=== PATIENT | female | born 1960 | race Caucasian/White ===

== ENCOUNTER → 2016-10-20 | Outpatient (CLI) | payer BC, OTHER ==
[~2016-10-20] MED LIST: BLACK COHOSH PO; DTRSR4 PO; HYDR-713 PO; MULT-506 PO; OMEP20TA14 PO; SULF800T23 PO; [UNRECOGNIZED DRUG - OTHER] PO
== END | disposition home or self-care (01) ==
LOC: C.LAB 13:11
PROVIDERS: ATTEND Nurse Practitioner Family
DX: E87.6 Hypokalemia (principal)

== ENCOUNTER → 2016-11-15 | Outpatient (CLI) | payer BC, OTHER ==
--- NOTE | 2016-11-15 16:47 | DIAGNOSTIC IMAGING REPORT ---
RIGHT FOOT 3 VIEWS HISTORY: ACUTE PAIN OF RIGHT FOOT Right COMPARISON: Right foot 02/06/2016. FINDINGS: There is no fracture or dislocation. Soft tissues are unremarkable. No radiopaque foreign bodies. Small plantar heel spur. Mild osteoarthritis at the first MTP joint demonstrated by mild cartilage space narrowing and subchondral cystic change. Small bony bunion. IMPRESSION: No fractures. Mild osteoarthritis at the first MTP joint. Electronically signed by: Jeffrey Scruggs M.D. 11/15/2016 4:46 PM Dictated Date/Time: 11/15/2016 4:43 PM
== END | disposition home or self-care (01) ==
LOC: C.RAD1850 16:15
PROVIDERS: ATTEND Nurse Practitioner Family
DX: M79.671 Pain in right foot (principal)

== ENCOUNTER → 2016-12-05 | Outpatient (CLI) | payer BC, OTHER ==
--- NOTE | 2016-12-05 09:08 | DIAGNOSTIC IMAGING REPORT ---
RIGHT KNEE 4 OR MORE CLINICAL HISTORY: RIGHT KNEE PAIN Right pain COMPARISON: None. DISCUSSION: Generalized degenerative change of the medial and to lesser extent lateral joint compartments. Minimal chondrocalcinosis. Mild peripheral osteophytic reaction. Degenerative change patellofemoral joint. There is no evidence for soft tissue swelling. IMPRESSION: Generalized degenerative change all major joint compartments. Minimal Chondrocalcinosis. Electronically signed by: Uday Pace M.D. 12/05/2016 9:06 AM Dictated Date/Time: 12/05/2016 9:05 AM
== END | disposition home or self-care (01) ==
LOC: C.RDSM 14:44
PROVIDERS: ATTEND Physician Assistant
DX: M25.561 Pain in right knee (principal)

== ENCOUNTER → 2018-01-29 | Outpatient (CLI) | payer BC, OTHER | END | disposition home or self-care (01) | LOC: C.RDSM 11:30 | PROVIDERS: ATTEND Orthopaedic Surgery Sports Medicine | DX: M17.2 Bilateral post-traumatic osteoarthritis of knee (principal) ==

== ENCOUNTER 2021-05-29 23:20 | Inpatient (IN) ==
[2021-05-30 00:26] LABS: Eosinophils # (auto) 0.03 K/uL (0-0.5); Eosinophils % (auto) 0.7 %; Immature Granulocytes # (auto) 0.02 K/uL (0.00-0.02); Immature Granulocytes % (auto) 0.5 %; Lymphocytes # (auto) 0.59 K/uL (1.2-3.4); Lymphocytes % (auto) 14.5 %; Mean Corpuscular Hemoglobin 27.9 pg (25-34); Mean Corpuscular Hgb Conc 34.1 g/dL (32-36); Mean Corpuscular Volume 81.8 fL (80-100); Mean Platelet Volume 10.3 fL (7.4-10.4); Monocytes # (auto) 0.26 K/uL (0.11-0.59); Monocytes % (auto) 6.4 %; Neutrophils # (auto) 3.17 K/uL (1.4-6.5); Neutrophils % (auto) 77.9 %; Platelet Count 189 K/uL (130-400); RDW Coefficient of Variation 14.1 % (11.5-14.5); RDW Standard Deviation 42.3 fL (36.4-46.3); Red Blood Count 5.01 M/uL (4.2-5.4); White Blood Count 4.07 K/uL (4.8-10.8)
--- NOTE | 2021-05-30 00:29 | Emergency Department Note ---
Impression & Plan Acute hyponatremia, Altered mental status, Sinusitis Admit to the [facility] ED Provider Note NAME: CARL ALCANTAR AGE: 61 SEX: F ARRIVES VIA: Walk-In INFORMANT: Patient ED PROVIDER(S): Breanna Gonzalez DO CHIEF COMPLAINT: Confusion PLAN: Disposition: Admit to the [facility] Condition: Stable MEDICAL DECISION MAKING: This is a 61-year-old female patient who presents to the emergency department with altered mental status. The patient was diagnosed with COVID-19 last week. Since that time she has had worsening confusion, diarrhea, body aches and headache. Upon presentation to the emergency department, the patient had borderline hypoxia. Laboratory studies revealed significant hyponatremia. She began to receive IV normal saline solution. CT scan of the brain was normal. [facility] for [facility] management. Triage Nursing notes reviewed and agree with them. Additional history obtained from the patient's daughter who accompanied her to triage Prior medical records reviewed Vital Signs: reviewed and remarkable for an O2 saturation of 90% on room air. Differential diagnosis: Hypoxia, dehydration, hyperglycemia, hypoglycemia ER treatment provided: IV normal saline bolus Diagnostics interpreted by me: ECG: Normal sinus rhythm at a rate of [address] segment elevation or signs of ischemia. There is no ectopy. 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 No ICH, mass-effect or edema. No evidence of acute cortical stroke. Visualized sinuses reveal mucosal thickening involving the bilateral maxillary, ethmoids, sphenoid and frontal sinuses consistent with sinusitis the mastoid air cells are clear. HPI: 61/F arrives for evaluation of confusion. The patient was diagnosed with COVID-19 last week. Since that time she had increasing confusion. She complains of weakness, intermittent episodes of diarrhea, body aches and a headache. The patient does live alone. She describes feeling thirsty. She is vaccinated. ROS: See above HPI for pertinent positives & negatives. A total of 10 systems reviewed and were otherwise negative. PAST MEDICAL HISTORY:See Below PAST SURGICAL HISTORY:See Below FAMILY HISTORY:See Below SOCIAL HISTORY:See Below HOME MEDICATIONS:See list ALLERGIES:See list VITALS:See Below PHYSICAL EXAMINATION: HEENT: Head - normocephalic and atraumatic. Pupils are equal, round, and reactive to light. Extraocular eye muscles are intact and sclera are anicteric. Nose - moist nasal mucosa without discharge. Mouth - moist buccal mucosa. Oropharynx is nonerythematous and there is no tonsillar exudate or edema noted. Neck: Supple; no JVD, nuchal rigidity, cervical lymphadenopathy, or auscultated bruits. Heart: Regular rate and rhythm. There is a normal S1 and S2 with no murmurs, clicks, or gallops appreciated. Lungs: Clear to auscultation bilaterally with no wheezes, rales, or rhonchi. Abdomen: Soft, completely nontender, nondistended, with good bowel sounds. There are no palpable pulsatile masses or hepatosplenomegaly. There is no guarding, rigidity, or rebound noted. Extremities: No evidence of cyanosis, clubbing, or edema. There are easily palpable peripheral pulses. Neuro:The patient is awake and alert, oriented to day, time, and place. Muscle strength is 5/5 in all 4 extremities. 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 There are no cerebellar signs. ED COURSE: Times/Reassessments: 2350: The patient was evaluated in the a subweight. Her O2 saturation was borderline and she was placed on supplemental oxygen. She was then moved to room A2. BSG was obtained and was greater than 100. An order was placed for continuous cardiac monitoring. The patient was in a normal sinus rhythm at a rate of 88. A twelve-lead EKG was obtained. An IV lock was initiated and labs were drawn as above. The patient had a portable chest x-ray performed. She will go for CT scan of the brain. Patient was bolused with 500 cc of normal saline and started on a normal saline drip. Breanna Gonzalez DO Past Med/Surg History Medical History (Updated 05/30/21 @ 04:04 by Kusum Martino DO) Arthritis of knee GERD (gastroesophageal reflux disease) Hypertension Pigmented villonodular synovitis of right knee Surgical History (Updated 05/20/20 @ 00:02 by Jose Juan Jordan) History of arthroscopic knee surgery Family History Other Family history non-contributory Social History Smoking Status: Never smoker Preferred Language: Kazakh marital status: Single current occupational status: retired Feels Safe at Home: Yes Allergies Allergies Allergy/AdvReac Type Severity Reaction Status Date / Time adhesive Allergy Unknown Unknown Verified 05/30/21 00:16 Home Meds Home Medications Medication Instructions Recorded Confirmed losartan 25 mg tablet 25 mg PO DAILY 12/20/18 05/30/21 omeprazole magnesium 20 mg 20 mg PO DAILY 12/20/18 05/30/21 tablet,delayed release (Prilosec OTC) aspirin 81 mg chewable tablet 81 mg PO DAILY 05/05/20 05/30/21 solifenacin 5 mg tablet 5 mg PO DAILY 05/05/20 05/30/21 Results & Data (ED) Vital Signs Vital Signs - 24 hr 05/29/21 23:24 05/30/21 00:12 05/30/21 00:20 Temperature 36.6 C Temperature Source Temporal Artery Scan Pulse Rate 100 H 90 Pulse Rate [Finger] Respiratory Rate 20 20 Respiratory Effort / Characteristics Non-Labored Spontaneous Respiratory Depth Normal Respiratory Pattern Regular Blood Pressure 121/91 Blood Pressure [Left Arm] Blood Pressure Mean 101 Blood Pressure Mean [Left Arm] Blood Pressure Position Sitting Pulse Oximetry 90 99 96 Oxygen Delivery Method Room Air Nasal Cannula Nasal Cannula Oxygen Flow Rate 2 2 Sepsis Recent Fever Within 48 Hours No Sepsis New/Unexplained Change in Mental Status No Sepsis Action Taken by Nursing No Action Required 05/30/21 00:22 05/30/21 02:07 Temperature Temperature Source Pulse Rate Pulse Rate [Finger] 88 77 Respiratory Rate 18 18 Respiratory Effort / Characteristics Non-Labored Spontaneous Non-Labored Spontaneous Respiratory Depth Normal Normal Respiratory Pattern Blood Pressure Blood Pressure [Left Arm] 119/94 133/84 Blood Pressure Mean Blood Pressure Mean [Left Arm] 102 100 Blood Pressure Position Pulse Oximetry 96 97 Oxygen Delivery Method Nasal Cannula Nasal Cannula Oxygen Flow Rate 2 2 Sepsis Recent Fever Within 48 Hours Sepsis New/Unexplained Change in Mental Status Sepsis Action Taken by Nursing Laboratory Data Result diagrams: 05/30/21 00:09 05/30/21 00:09 Lab Results 05/30/21 05/30/21 05/30/21 Range/Units 00:09 00:09 00:10 WBC 4.07 L (4.8-10.8) K/uL RBC 5.01 (4.2-5.4) M/uL Hgb 14.0 (12.0-16.0) g/dL Hct 41.0 (37-47) % MCV 81.8 (80-100) fL MCH 27.9 (25-34) pg MCHC 34.1 (32-36) g/dL RDW Std Deviation 42.3 (36.4-46.3) fL RDW Coeff of Dorothy 14.1 (11.5-14.5) % Plt Count 189 (130-400) K/uL MPV 10.3 (7.4-10.4) fL Immature Gran % (Auto) 0.5 % Neut % (Auto) 77.9 % Lymph % (Auto) 14.5 % [place] % (Auto) 6.4 % Eos % (Auto) 0.7 % Baso % (Auto) 0.0 % Neut # (Auto) 3.17 (1.4-6.5) K/uL Lymph # (Auto) 0.59 L (1.2-3.4) K/uL [place] # (Auto) 0.26 (0.11-0.59) K/uL Eos # (Auto) 0.03 (0-0.5) K/uL Baso # (Auto) 0.00 (0-0.2) K/uL Immature Gran # (Auto) 0.02 (0.00-0.02) K/uL Sodium 128 L (136-145) mmol/L Potassium 3.5 (3.5-5.1) mmol/L Chloride 94 L (98-107) mmol/L Carbon Dioxide 24 (21-32) mmol/L Anion Gap 10.0 (3-11) BUN 22 H (7-18) mg/dl Creatinine 1.19 (0.6-1.2) mg/dl Est Cr Clr Drug Dosing Not Reportable Est GFR ( Amer) 57.5 ml/min Est GFR (Non-Af Amer) 49.6 ml/min BUN/Creatinine Ratio 18.2 (10-20) Glucose 101 H (70-99) mg/dl POC Glucose 98 (70-99) mg/dl Calcium 9.8 (8.5-10.1) mg/dl Total Bilirubin 0.5 (0.2-1) mg/dl AST 98 H (15-37) U/L ALT 60 (12-78) Alkaline Phosphatase 106 (45-117) U/L Troponin I < 0.015 (0-0.045) ng/ml Total Protein 7.6 (6.4-8.2) gm/dl Albumin 3.2 L (3.4-5.0) gm/dl Globulin 4.4 H (2.5-4.0) gm/dl Albumin/Globulin Ratio 0.7 L (0.9-2) TSH 0.510 (0.300-4.500) uIu/ml Urine Color Urine Appearance (Clear) Urine pH (4.5-7.5) Ur Specific [place] (1.000-1.030) Urine Protein (Negative) Urine Glucose (UA) (Negative) Urine Ketones (Negative) Urine Blood (Negative) Urine Nitrite (Negative) Urine Bilirubin (Negative) Urine Urobilinogen (Negative) Ur Leukocyte Esterase (Negative) Urine WBC (Auto) (0-5) /hpf Urine RBC (Auto) (0-4) /hpf U Hyaline Cast (Auto) (0-5) /lpf U Epithel Cells (Auto) (0-5) /lpf Urine Bacteria (Auto) (Negative) Granular Casts (0) /lpf Urine Yeast 05/30/21 Range/Units 01:49 WBC (4.8-10.8) K/uL RBC (4.2-5.4) M/uL Hgb (12.0-16.0) g/dL Hct (37-47) % MCV (80-100) fL MCH (25-34) pg MCHC (32-36) g/dL RDW Std Deviation (36.4-46.3) fL RDW Coeff of Dorothy (11.5-14.5) % Plt Count (130-400) K/uL MPV (7.4-10.4) fL Immature Gran % (Auto) % Neut % (Auto) % Lymph % (Auto) % [place] % (Auto) % Eos % (Auto) % Baso % (Auto) % Neut # (Auto) (1.4-6.5) K/uL Lymph # (Auto) (1.2-3.4) K/uL [place] # (Auto) (0.11-0.59) K/uL Eos # (Auto) (0-0.5) K/uL Baso # (Auto) (0-0.2) K/uL Immature Gran # (Auto) (0.00-0.02) K/uL Sodium (136-145) mmol/L Potassium (3.5-5.1) mmol/L Chloride (98-107) mmol/L Carbon Dioxide (21-32) mmol/L Anion Gap (3-11) BUN (7-18) mg/dl Creatinine (0.6-1.2) mg/dl Est Cr Clr Drug Dosing Est GFR ( Amer) ml/min Est GFR (Non-Af Amer) ml/min BUN/Creatinine Ratio (10-20) Glucose (70-99) mg/dl POC Glucose (70-99) mg/dl Calcium (8.5-10.1) mg/dl Total Bilirubin (0.2-1) mg/dl AST (15-37) U/L ALT (12-78) Alkaline Phosphatase (45-117) U/L Troponin I (0-0.045) ng/ml Total Protein (6.4-8.2) gm/dl Albumin (3.4-5.0) gm/dl Globulin (2.5-4.0) gm/dl Albumin/Globulin Ratio (0.9-2) TSH (0.300-4.500) uIu/ml Urine Color Dark Yellow Urine Appearance Cloudy A (Clear) Urine pH 6.0 (4.5-7.5) Ur Specific [place] 1.022 (1.000-1.030) Urine Protein 1+ H (Negative) Urine Glucose (UA) Negative (Negative) Urine Ketones 2+ H (Negative) Urine Blood Negative (Negative) Urine Nitrite Negative (Negative) Urine Bilirubin 1+ H (Negative) Urine Urobilinogen Negative (Negative) Ur Leukocyte Esterase Trace H (Negative) Urine WBC (Auto) 5-10 H (0-5) /hpf Urine RBC (Auto) 0-4 (0-4) /hpf U Hyaline Cast (Auto) 1-5 (0-5) /lpf U Epithel Cells (Auto) >30 H (0-5) /lpf Urine Bacteria (Auto) Negative (Negative) Granular Casts 1-5 H (0) /lpf Urine Yeast Not Reportable Administered Medications Sodium Chloride (Nss) 500 mls @ 125 mls/hr IV .Q4H ROGELIO Stop: 06/29/21 01:14 Last Admin: 05/30/21 02:13 Dose: 125 mls/hr Documented by: [id number] Discontinued Medications Sodium Chloride (Nss) 500 mls @ 999 mls/hr IV .Q31M ONE Stop: 05/30/21 01:34 Last Infusion: 05/30/21 02:13 Dose: 0 mls/hr Documented by: [id number] Admin: 05/30/21 01:14 Dose: 999 mls/hr Documented by: [id number] Discharge Plan Visit Data Chief Complaint: Confusion Stated Complaint: COVID+, WEAK, CONFUSION, DIARRHEA ED Provider: Breanna Gonzalez Discharge Problem: Acute hyponatremia, Altered mental status, Sinusitis Forms Stand Alone Forms: [facility] [employer] Prescriptions Prescriptions: No Action aspirin 81 mg tablet,chewable 81 mg PO DAILY RF: 0 solifenacin 5 mg tablet 5 mg PO DAILY RF: 0 losartan 25 mg Tablet 25 mg PO DAILY RF: 0 omeprazole magnesium [Prilosec OTC] 20 mg Tablet,Delayed Release (Dr/Ec) 20 mg PO DAILY RF: 0 Referrals Referrals: Rose White CRNP [Primary Care Provider] - Discharge Problem: Altered mental status Qualifiers: Altered mental status type: unspecified Qualified Code(s): R41.82 - Altered mental status, unspecified Sinusitis Qualifiers: Sinusitis location: pansinusitis Chronicity: acute Recurrence: non-recurrent Qualified Code(s): J01.40 - Acute pansinusitis, unspecified
[2021-05-30 00:44] LABS: Alanine Aminotransferase 60 (12-78); Albumin Level 3.2 gm/dl (3.4-5.0); Aspartate Aminotransferase 98 U/L (15-37); BUN Creatinine Ratio 18.2 (10-20); Blood Urea Nitrogen 22 mg/dl (7-18); Calcium 9.8 mg/dl (8.5-10.1); Carbon Dioxide 24 mmol/L (21-32); Chloride 94 mmol/L (98-107); Est GFR (African American) 57.5 ml/min; Est GFR (Non-African American) 49.6 ml/min; Glucose 101 mg/dl (70-99); Potassium 3.5 mmol/L (3.5-5.1); Sodium 128 mmol/L (136-145)
[2021-05-30 00:54] LABS: Albumin Globulin Ratio 0.7 (0.9-2); Alkaline Phosphatase 106 U/L (45-117); Bilirubin,Total 0.5 mg/dl (0.2-1); Globulin 4.4 gm/dl (2.5-4.0); Total Protein 7.6 gm/dl (6.4-8.2); Troponin I < 0.015 ng/ml (0-0.045)
[2021-05-30] MEDS ORDERED: SODIUM CHLORIDE 0.9% 500 ML IV ONE (01:04)
[2021-05-30 02:01] LABS: Appearance Urine Cloudy (Clear); Bacteria Urine Automated Negative (Negative); Blood Urine Negative (Negative); Color Urine Dark Yellow; Epithelial Cell Urine Auto >30 /lpf (0-5); Glucose Urine UA Negative (Negative); Ketones Urine 2+ (Negative); Leukocyte Esterase Urine Trace (Negative); Nitrite Urine Negative (Negative); Protein Urine 1+ (Negative); Specific Gravity Urine 1.022 (1.000-1.030); Urobilinogen Urine Negative (Negative)
[2021-05-30] MEDS: SODIUM CHLORIDE 0.9% 500 ML IV SCH ×3 (02:13→08:36)
[2021-05-30 02:16] LABS: Bilirubin Urine 1+ (Negative)
[2021-05-30 02:26] LABS: RBC Urine Automated 0-4 /hpf (0-4)
--- NOTE | 2021-05-30 03:01 | History & Physical Report ---
Date of Service May 30, 2021 Assessment & Plan (1) Acute hyponatremia: Plan: [id number]=[id number]. Most likely contributing to patient's worsening confusion. Suspect multifactorial - poor oral intake + diarrhea and vomiting losses. Hyponatremia also common in Covid-19 patient's secondary to SIADH mechanism. No seizure. Patient is responding to questions appropriately, albeit slowly. Patient has received appx 2L NSS fluids at this time. -Check urine and serum osm -Check urine sodium -Check BMP q 8 hours -Slow correction of hyponatremia - goal rate of <10 meq/24hrs to avoid ODS (2) Hypertension: Plan: Chronic. Stable. BP presently 133/84 -Continue Losartan 25mg po daily -Monitor (3) GERD (gastroesophageal reflux disease): Plan: Chronic. Stable -Pepcid daily (4) COVID-19: Plan: Adequate oxygenation on 2L NC -Goal saturation >92. Monitor -No need for steroids at this time -Monitor History of Present Illness Chief Complaint: weakness Primary Care Provider: SAVANNA Baez Ashlimelo Galeas is a 61yo C female with history of HTN, GERD presenting with progressive confusion over the last week. Patient was diagnosed with Covid-19 1 week ago. She reports feeling more confused over the last several days. She has been having some vomiting and diarrhea as well as poor oral intake. She has a dull headache. Denies loss of consciousness, dizziness, falls or seizure. Denies chest pain, SOB. Saturations acceptable in the ER. Patient presently on 2L NC. She is vaccinated. Labs reveal Na of 128 ER Course: NSS x 1L followed by 125mL/hr Allergies Allergy/AdvReac Type Severity Reaction Status Date / Time adhesive Allergy Unknown Unknown Verified 05/30/21 00:16 Home Medications Medication Instructions Recorded Confirmed Type losartan 25 mg tablet 25 mg PO DAILY 12/20/18 05/30/21 History omeprazole magnesium 20 mg 20 mg PO DAILY 12/20/18 05/30/21 History tablet,delayed release (Prilosec OTC) aspirin 81 mg chewable tablet 81 mg PO DAILY 05/05/20 05/30/21 History solifenacin 5 mg tablet 5 mg PO DAILY 05/05/20 05/30/21 History Past Med/Surg History Medical History (Updated 05/30/21 @ 04:04 by Kusum M Gunner, DO) Arthritis of knee GERD (gastroesophageal reflux disease) Hypertension Pigmented villonodular synovitis of right knee Surgical History (Updated 05/20/20 @ 00:02 by Jose Juan Jordan) History of arthroscopic knee surgery Family History Other Family history non-contributory Social History Smoking Status: Never smoker Preferred Language: Kyrgyz marital status: Single current occupational status: retired Feels Safe at Home: Yes Review of Systems Review of Systems: All systems reviewed & are unremarkable except as noted in HPI & below Physical Exam Physical Exam: General: patient resting comfortably, NAD, non-toxic in appearance, AA&O x 3, slow to respond to questioning Skin: warm, dry, intact, no rashes or lesions HEENT: NC/AT, PERRL, EOMI, anicteric sclera, conjunctiva without injection, external ear normal to inspection and nontender, nares patent, moist mucus membranes, dentition intact, no oropharyngeal lesions, neck supple, trachea midline, no LAD, no thyromegaly, no JVD Heart: +S1/S2, regular, no m/r/g Lungs: equal air entry bilaterally, no rales/rhonchi/wheezes Abd: +BS, soft, NT/ND, no masses/organomegaly/ascites Ext: warm, 2+ pulses in UE/LE bilaterally, no clubbing/cyanosis or edema Neuro: nonfocal, patient AA&O x 3, speech intact, no facial droop, moving all extremities on command with equal strength 5/5 Results & Data Results & Data ([facility]) Vital Signs (Past 12 Hours) Vital Signs Temp Pulse Pulse Resp BP BP Pulse Ox 05/30/21 02:07 77 18 133/84 97 05/30/21 00:22 88 18 119/94 96 05/30/21 00:20 90 20 96 05/30/21 00:12 99 05/29/21 23:24 36.6 C 100 H 20 121/91 90 Laboratory Results Laboratory Results WBC 4.07 K/uL (4.8-10.8) L 05/30/21 00:09 RBC 5.01 M/uL (4.2-5.4) 05/30/21 00:09 Hgb 14.0 g/dL (12.0-16.0) 05/30/21 00:09 Hct 41.0 % (37-47) 05/30/21 00:09 MCV 81.8 fL (80-100) 05/30/21 00:09 MCH 27.9 pg (25-34) 05/30/21 00:09 MCHC 34.1 g/dL (32-36) 05/30/21 00:09 RDW Std Deviation 42.3 fL (36.4-46.3) 05/30/21 00:09 RDW Coeff of Dorothy 14.1 % (11.5-14.5) 05/30/21 00:09 Plt Count 189 K/uL (130-400) 05/30/21 00:09 MPV 10.3 fL (7.4-10.4) 05/30/21 00:09 Immature Gran % (Auto) 0.5 % 05/30/21 00:09 Neut % (Auto) 77.9 % 05/30/21 00:09 Lymph % (Auto) 14.5 % 05/30/21 00:09 [place] % (Auto) 6.4 % 05/30/21 00:09 Eos % (Auto) 0.7 % 05/30/21 00:09 Baso % (Auto) 0.0 % 05/30/21 00:09 Neut # (Auto) 3.17 K/uL (1.4-6.5) 05/30/21 00:09 Lymph # (Auto) 0.59 K/uL (1.2-3.4) L 05/30/21 00:09 [place] # (Auto) 0.26 K/uL (0.11-0.59) 05/30/21 00:09 Eos # (Auto) 0.03 K/uL (0-0.5) 05/30/21 00:09 Baso # (Auto) 0.00 K/uL (0-0.2) 05/30/21 00:09 Immature Gran # (Auto) 0.02 K/uL (0.00-0.02) 05/30/21 00:09 Sodium 128 mmol/L (136-145) L 05/30/21 00:09 Potassium 3.5 mmol/L (3.5-5.1) 05/30/21 00:09 Chloride 94 mmol/L (98-107) L 05/30/21 00:09 Carbon Dioxide 24 mmol/L (21-32) 05/30/21 00:09 Anion Gap 10.0 (3-11) 05/30/21 00:09 BUN 22 mg/dl (7-18) H 05/30/21 00:09 Creatinine 1.19 mg/dl (0.6-1.2) 05/30/21 00:09 Est Cr Clr Drug Dosing Not Reportable 05/30/21 00:09 Est GFR ( Amer) 57.5 ml/min 05/30/21 00:09 Est GFR (Non-Af Amer) 49.6 ml/min 05/30/21 00:09 BUN/Creatinine Ratio 18.2 (10-20) 05/30/21 00:09 Glucose 101 mg/dl (70-99) H 05/30/21 00:09 POC Glucose 98 mg/dl (70-99) 05/30/21 00:10 Calcium 9.8 mg/dl (8.5-10.1) 05/30/21 00:09 Total Bilirubin 0.5 mg/dl (0.2-1) 05/30/21 00:09 AST 98 U/L (15-37) H 05/30/21 00:09 ALT 60 (12-78) 05/30/21 00:09 Alkaline Phosphatase 106 U/L (45-117) 05/30/21 00:09 Troponin I < 0.015 ng/ml (0-0.045) 05/30/21 00:09 Total Protein 7.6 gm/dl (6.4-8.2) 05/30/21 00:09 Albumin 3.2 gm/dl (3.4-5.0) L 05/30/21 00:09 Globulin 4.4 gm/dl (2.5-4.0) H 05/30/21 00:09 Albumin/Globulin Ratio 0.7 (0.9-2) L 05/30/21 00:09 TSH 0.510 uIu/ml (0.300-4.500) 05/30/21 00:09 Urine Color Dark Yellow 05/30/21 01:49 Urine Appearance Cloudy (Clear) A 05/30/21 01:49 Urine pH 6.0 (4.5-7.5) 05/30/21 01:49 Ur Specific [place] 1.022 (1.000-1.030) 05/30/21 01:49 Urine Protein 1+ (Negative) H 05/30/21 01:49 Urine Glucose (UA) Negative (Negative) 05/30/21 01:49 Urine Ketones 2+ (Negative) H 05/30/21 01:49 Urine Blood Negative (Negative) 05/30/21 01:49 Urine Nitrite Negative (Negative) 05/30/21 01:49 Urine Bilirubin 1+ (Negative) H 05/30/21 01:49 Urine Urobilinogen Negative (Negative) 05/30/21 01:49 Ur Leukocyte Esterase Trace (Negative) H 05/30/21 01:49 Urine WBC (Auto) 5-10 /hpf (0-5) H 05/30/21 01:49 Urine RBC (Auto) 0-4 /hpf (0-4) 05/30/21 01:49 U Hyaline Cast (Auto) 1-5 /lpf (0-5) 05/30/21 01:49 U Epithel Cells (Auto) >30 /lpf (0-5) H 05/30/21 01:49 Urine Bacteria (Auto) Negative (Negative) 05/30/21 01:49 Granular Casts 1-5 /lpf (0) H 05/30/21 01:49 Urine Yeast Not Reportable 05/30/21 01:49 Code Status & VTE Plan VTE Prophylaxis Plan VTE Prophylaxis will be ordered: Yes PG Care Time/CCT Total # of Minutes Spent Total Time Spent with Patient: Total time spent is greater than 50% in coordination of care (as documented) at patient's floor/unit and/or counseling patient: Coding Level of Care Code 00538 Initial Inpt Care Lvl 2 Diagnoses Acute hyponatremia E87.1 Hypertension I10 GERD (gastroesophageal reflux disease) K21.9 COVID-19 U07.1
[2021-05-30 07:21] LABS: BUN Creatinine Ratio 20.8 (10-20); Blood Urea Nitrogen 20 mg/dl (7-18); Carbon Dioxide 23 mmol/L (21-32); Est GFR (African American) 73.6 ml/min; Est GFR (Non-African American) 63.5 ml/min; Glucose 100 mg/dl (70-99)
[2021-05-30 08:09] LABS: Chloride 98 mmol/L (98-107); Potassium 3.3 mmol/L (3.5-5.1); Sodium 131 mmol/L (136-145)
--- NOTE | 2021-05-30 08:12 | XRay Report ---
XR chest 1V portable CLINICAL HISTORY: weakness TECHNIQUE: Single frontal radiograph of the chest was obtained. Comparison: None available at the time of this dictation. FINDINGS: No lines and tubes are seen. The cardiomediastinal silhouette is normal. Bilateral lower lung predomi nant airspace opacities are seen. No evidence of pleural effusion or pneumothorax. IMPRESSION: Bilateral lower lung predominant airspace opacities which may represent atelectasis, pneumonia, and/o r aspiration. ACT 112: Negative or not required by law. Electronically signed by: Jesus Kenyon M.D. 05/30/2021 8:10 AM
--- NOTE | 2021-05-30 08:17 | CT Scan Report ---
CT head/brain wo con CLINICAL HISTORY: altered ms Technique: Contiguous axial CT images of the head were acquired from the base of the skull to the chris leonard without intravenous contrast administration. Images were viewed in brain, subdural and [facility]. Automated dose lowering techniques and/or adjustment according to patient size were utilized for this exam. Comparison: None available at the time of this dictation. Findings: The ventricles, basal cisterns, and cerebral sulci are normal. There is no acute intracranial hemorrh age or evidence of acute territorial infarction. Neither mass effect, shift of the midline structures , nor abnormal extra-axial fluid collections are shown. 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 Diffuse soft tissue thickening seen in the maxillary, ethmoid, and sphenoid sinuses. The orbits appea r normal. There are no acute fractures of the calvaria or scalp swelling. Impression: No acute intracranial hemorrhage, no evidence of acute territorial infarction or other acute intracra nial disease process. ACT 112: Negative or not required by law. Electronically signed by: Jesus Kenyon M.D. 05/30/2021 8:15 AM
[2021-05-30] MEDS ORDERED: ONDANSETRON INJ 2 MG/ML 2 ML VIAL IV PRN (09:26)
[2021-05-30 10:19] LABS: BUN Creatinine Ratio 20.4 (10-20); Calcium 9.4 mg/dl (8.5-10.1); Creatinine Clr Calc Pharmacy 74.2 ml/min; Est GFR (African American) 73.6 ml/min; Est GFR (Non-African American) 63.5 ml/min; Potassium 3.4 mmol/L (3.5-5.1)
[2021-05-30] MEDS: ASPIRIN 81 MG CHEW PO SCH (14:53)
[2021-05-30] MEDS: ENOXAPARIN INJ 40 MG/0.4 ML SYR SQ SCH ×2 (14:53→21:33)
[2021-05-30] MEDS: FAMOTIDINE 40 MG TABLET PO SCH (17:50)
[2021-05-30] MEDS: LOSARTAN POTASSIUM 25 MG TAB PO SCH (17:50)
[2021-05-30 18:24] LABS: BUN Creatinine Ratio 15.1 (10-20); Calcium 9.6 mg/dl (8.5-10.1); Creatinine Clr Calc Pharmacy 64.3 ml/min; Est GFR (African American) 61.8 ml/min; Est GFR (Non-African American) 53.4 ml/min; Potassium 3.5 mmol/L (3.5-5.1)
[2021-05-30] MEDS ORDERED: METOPROLOL TARTRATE 1 MG/ML VIAL IV PRN (19:34)
[2021-05-30] MEDS: SODIUM CHLORIDE 0.9% 1000ML 1,000 ML IV SCH (19:49)
[2021-05-31 02:21] LABS: BUN Creatinine Ratio 16.7 (10-20); Calcium 9.6 mg/dl (8.5-10.1); Creatinine Clr Calc Pharmacy 68.6 ml/min; Est GFR (African American) 66.9 ml/min; Est GFR (Non-African American) 57.7 ml/min; Potassium 3.6 mmol/L (3.5-5.1)
[2021-05-31] MEDS: SODIUM CHLORIDE 0.9% 1000ML 1,000 ML IV SCH (04:57)
[2021-05-31] MEDS: ACETAMINOPHEN 325 MG TAB PO PRN (08:34)
[2021-05-31] MEDS: FAMOTIDINE 40 MG TABLET PO SCH (08:34)
[2021-05-31] MEDS: LOSARTAN POTASSIUM 25 MG TAB PO SCH (08:34)
[2021-05-31] MEDS: ASPIRIN 81 MG CHEW PO SCH (08:34)
[2021-05-31] MEDS: ENOXAPARIN INJ 120 MG/0.8 ML SYR SQ SCH ×2 (10:15→22:02)
[2021-05-31] MEDS: dexAMETHasone 6 MG in SYRINGE 0 ML IV SCH (10:15)
[2021-05-31 10:30] LABS: Albumin Globulin Ratio 0.7 (0.9-2); Albumin Level 2.4 gm/dl (3.4-5.0); Bilirubin,Total 0.7 mg/dl (0.2-1); Calcium 8.8 mg/dl (8.5-10.1); Creatinine Clr Calc Pharmacy 94.7 ml/min; Est GFR (African American) 98.8 ml/min; Est GFR (Non-African American) 85.3 ml/min; Globulin 3.6 gm/dl (2.5-4.0)
[2021-05-31 11:18] LABS: Influenza A virus by PCR Negative (Neg); Influenza B virus by PCR Negative (Neg); RSV by PCR Negative (Neg)
[2021-05-31 11:34] LABS: SARS CoV2 RNA(COVID-19) InHosp POSITIVE (Negative)
[2021-05-31] MEDS ORDERED: POTASSIUM CHLORIDE CRTAB 20 MEQ TABCR PO STA (11:42)
--- NOTE | 2021-05-31 13:24 | Electrocardiogram Report ---
Test Reason : Blood Pressure : / mmHG Vent. Rate : 084 BPM Atrial Rate : 084 BPM P-R Int : 160 ms QRS Dur : 084 ms QT Int : 356 ms P-R-T Axes : 040 -12 009 degrees QTc Int : 420 ms Normal sinus rhythm Possible Left atrial enlargement Borderline ECG When compared with ECG of 05-MAY-2020 19:19, Inverted T waves have replaced nonspecific T wave abnormality in Inferior leads Nonspecific T wave abnormality no longer evident in Anterior leads Confirmed by Shade Contreras ([id number]) on 05/31/2021 1:24:32 PM Referred By: REFERRED SELF Confirmed By:Shade Contreras
--- NOTE | 2021-05-31 14:08 | Hospitalist Progress Note ---
Date of Service May 31, 2021 Assessment & Plan (1) COVID-19: Plan: Patient presents with symptoms of Covid-19 that started approximately 8 days prior to admission and she was tested at an urgent care at an outside facility which was positive. She is fully vaccinated earlier this year, but had not yet received a Covid booster. She remains febrile here, and developed hypoxia since admission is requiring 3 L nasal cannula keep pulse ox at 92-93% She is also having diarrhea Chest x-ray with bilateral basilar pneumonia CRP significantly elevated at 11.0, AST mildly elevated at 81 secondary to Covid-19 Covid-19 pneumonia and acute respiratory failure with hypoxia -Transfer to telemetry given new onset atrial fibrillation as below -Start dexamethasone 6 mg IV once daily -Outside the window for benefit from Remdesivir -Tylenol as needed for fevers -Add on incentive spirometry and flutter valve -Encouraged side or prone positioning -Follow CBC, CMP, CRP in the morning -If she requires high flow nasal cannula with FiO2 greater than 40% within the first 72 hours of admission, she would qualify for baricitinib (2) Atrial fibrillation: Plan: With new onset atrial fibrillation noted on ECG here. Her initial ECG was sinus rhythm as was a previous ECG in our records. Patient has no recollection of ever having atrial fibrillation in the past She is not overtly symptomatic with this. Her rates are in the low 100s at times on ECG, but she is not on a athletic monitor here. [id number] score is 2 for female gender and history of hypertension HAS-BLED score for major bleeding risk is low at 1, however does have a history of recently coiled cerebral aneurysm in 2019. She was told by her neurosurgeon that this is not at risk for rupture currently and I do not believe that she has a high risk for bleeding at this time. -Transfer to telemetry for closer monitoring -Check echocardiogram -Consult cardiology for further evaluation and management -For now, increase Lovenox to therapeutic dosing at 1 mg/KG SQ every 12 hours, however I discussed starting Eliquis with her and I am awaiting a return phone call from her neurosurgeon, Dr. Haskins, at [facility] in [place] to ensure that this is acceptable in the setting of her cerebral aneurysm -Replace potassium and follow electrolytes -Hold off on starting beta-tyson until she can be placed on athletic monitor for closer monitoring of rates (3) Acute metabolic encephalopathy: Plan: Presented with altered mentation which now seems resolved This was most likely secondary to febrile illness, Covid-19, as well as hyponatremia which is now improving (4) Acute respiratory failure with hypoxia: Plan: As above, secondary to Covid-19 pneumonia (5) Acute hyponatremia: Plan: [id number]. Most likely contributing to patient's worsening confusion upon admission Suspect multifactorial - poor oral intake + diarrhea and vomiting losses. Hyponatremia also common in Covid-19 patient's secondary to SIADH mechanism. No seizure. Received 3 L of normal saline and sodium is now improved to 134 Urine osmolality high at 337, urine sodium 24, however these electrolyte abnormalities were collected at least 12 hours after receiving 2 L of normal saline Most likely secondary to hypovolemia Okay to discontinue further IV fluids at this time Follow BMP (6) Hypokalemia: Plan: Potassium 3.0 Secondary to poor p.o. intake and GI losses Replace with 60 mEq of p.o. potassium chloride Follow BMP and magnesium in the morning (7) Hypertension: Plan: Chronic. Stable. Blood pressure well controlled -Continue Losartan 25mg po daily -Monitor (8) GERD (gastroesophageal reflux disease): Plan: Chronic. Stable -Pepcid daily (9) Cerebral arterial aneurysm: Plan: As noted above In the anterior communicating artery, performed in 2019 at [facility] (10) Obesity: Plan: BMI 43.7 This certainly contributes to risk for severe disease with Covid-19 Needs weight loss Plan: Prophylaxis-Lovenox SQ Disposition-continued stay and transfer to telemetry unit on Covid precautions Admission and Anticipated Discharge Date Admission Date: May 30, 2021 Subjective Patient reports feeling weak, she slid to the ground last night with assistance and did not have any injuries. She was having diarrhea today, nonbloody. Denies abdominal pains. Denies chest pains. She feels a little bit short of breath with exertion. Has a cough. No chest pain. She does feel a little bit funny in her chest and was noted to be in atrial fibrillation on EKG last night. She has never had atrial fibrillation before that she knows of. She has chronic dyspnea on exertion but always attributed to "the fact that I am fat." She has a history of a web coil being placed by her neurosurgery at [facility] in an anterior communicating artery aneurysm approximately 1 year ago. She reports she had a follow-up MRI since that time in 11/2020 which showed 50% reduction in the size of her aneurysm and her neurosurgeon told her that she is not at risk for rupture at this time. She denies headache. She is eating and drinking. Review of Systems Review of Systems: All systems reviewed & are unremarkable except as noted in HPI & below Physical Exam Constitutional: WD/WN, vitals as above + morbidly obese Eyes: PERRL, conjunctivae normal, anicteric sclerae ENMT: external ear and nose normal, oropharynx normal Neck: trachea midline, no thyromegaly Respiratory: normal respiratory effort and + cough; not tachypneic Auscultation: + crackles (Lower lung becker bilaterally); no rhonchi and no wheezes Cardiovascular: Rate/Rhythm: regular rate and + irregularly irregular Heart Sounds: no murmur Vessels: dorsalis pedis pulses present Extremities: no edema Chest (Breasts): Chest: normal inspection of chest Gastrointestinal (Abdomen): normal bowel sounds, soft, nontender, no hepa tosplenomegaly Musculoskeletal: Extremities: extremities normal to inspection; no cyanosis and no clubbing Skin: no rashes, warm and dry Neurologic: moves all extremities and awake; no focal motor deficits Psychiatric: A+Ox3, euthymic affect Lymphatic: no lymphedema Results & Data Results & Data ([facility]) Vital Signs (Past 12 Hours) Vital Signs Temp Pulse Resp BP Pulse Ox 05/31/21 09:06 37.4 C 05/31/21 07:44 39.0 C H 87 28 H 110/74 96 Laboratory Results 05/30/21 00:09 05/31/21 09:26 PG Care Time/CCT Total # of Minutes Spent Total Time Spent with Patient: Total time spent is greater than 50% in coordination of care (as documented) at patient's floor/unit and/or counseling patient: Coding Level of Care Code 61993 Subseq Hosp Care Lvl 3 Diagnoses Acute hyponatremia E87.1 Hypertension I10 GERD (gastroesophageal reflux disease) K21.9 COVID-19 U07.1 Atrial fibrillation I48.91 Cerebral arterial aneurysm I67.1 Obesity E66.9 Acute respiratory failure with hypoxia J96.01 Acute metabolic encephalopathy G93.41 Hypokalemia E87.6
--- NOTE | 2021-05-31 14:56 | Cardiology Consultation ---
Date of Consultation May 31, 2021 Assessment & Plan (1) Atrial fibrillation: 1. Atrial fibrillation: Based on her record here it seems that atrial fibrillation is a new diagnosis, at home she is on aspirin but not an anticoagulant. Her [id number] score is 2 (1 for hypertension and 1 for female gender) and she should probably be on an anticoagulant. I would recommend starting Eliquis. If the atrial fibrillation is related to the COVID-19 diagnosis she may not need long-term therapy but it may be difficult to tell if that is the case. Long-term monitoring may be required to make that determination. Heart rate control does not seem to be much of an issue, at least at rest. Beta-blockade could be used instead of losartan and may treat her atrial fibrillation and her blood pressure. 2. High blood pressure: She has a history of hypertension and is on losartan, here her blood pressures have been good except for a few isolated readings. History of Present Illness Reason for Consultation: New onset atrial fibrillation Attending Physician: Kenyetta Perry MD History of Present Illness This is a 61-year-old woman who has a history of hypertension, GERD and a cerebral aneurysm which was clipped in April 2020 at [facility]. She was diagnosed with COVID-19 about a week ago and she was admitted on May 30, 2021 with altered mental status (due to hyponatremia). On presentation an electrocardiogram done May 30, 2021 at18 minutes after midnight showed sinus rhythm, by 1939 the same day she was in atrial fibrillation with a heart rate of 114 bpm which remained. It is not known whether she has prior episodes of atrial fibrillation but they do not appear in her history. I did not interview her due to her COVID-19 diagnosis and her mental status. Allergies Allergy/AdvReac Type Severity Reaction Status Date / Time adhesive Allergy Unknown Unknown Verified 05/30/21 00:16 Home Medications Medication Instructions Recorded Confirmed Type losartan 25 mg tablet 25 mg PO DAILY 12/20/18 05/30/21 History omeprazole magnesium 20 mg 20 mg PO DAILY 12/20/18 05/30/21 History tablet,delayed release (Prilosec OTC) aspirin 81 mg chewable tablet 81 mg PO DAILY 05/05/20 05/30/21 History solifenacin 5 mg tablet 5 mg PO DAILY 05/05/20 05/30/21 History Patient History Medical History Arthritis of knee Atrial fibrillation Cerebral arterial aneurysm GERD (gastroesophageal reflux disease) Hypertension Obesity Pigmented villonodular synovitis of right knee Surgical History History of arthroscopic knee surgery S/P coil embolization of cerebral aneurysm Family History Other Family history non-contributory Social History Smoking Status: Never smoker Hx Alcohol Use: No Hx Substance Use: No Preferred Language: Dutch Communication Ability: Effective Thread Clipper Required: No marital status: Single Current Living Situation: Alone current occupational status: retired Feels Safe at Home: Yes Assistive Devices: Oxygen - Continuous Review of Systems Review of Systems: Other (Interview her due to COVID-19 infection.) Physical Exam Physical Exam: I did not examine her due to COVID-19 infection. Results & Data ([facility]) Vital Signs (Past 12 Hours) Vital Signs Temp Pulse Resp BP Pulse Ox 05/31/21 09:06 37.4 C 05/31/21 07:44 39.0 C H 87 28 H 110/74 96 Laboratory Results Cardiac Enzymes 05/31/21 Range/Units 09:26 AST 81 H (15-37) U/L Comprehensive Metabolic Panel 05/30/21 05/31/21 05/31/21 Range/Units 17:52 01:47 09:26 Sodium 129 L 131 L 134 L (136-145) mmol/L Potassium 3.5 3.6 3.0 L D (3.5-5.1) mmol/L Chloride 96 L 98 102 (98-107) mmol/L Carbon Dioxide 26 28 23 (21-32) mmol/L BUN 17 18 14 (7-18) mg/dl Creatinine 1.12 1.05 0.76 (0.6-1.2) mg/dl Glucose 113 H 117 H 123 H (70-99) mg/dl Calcium 9.6 9.6 8.8 (8.5-10.1) mg/dl AST 81 H (15-37) U/L ALT 53 (12-78) Alkaline Phosphatase 93 (45-117) U/L Total Protein 6.0 L D (6.4-8.2) gm/dl Albumin 2.4 L (3.4-5.0) gm/dl Intake and Output 05/31/21 05/31/21 05/31/21 06:59 14:59 22:59 Intake Total 1850 / 2660.417 1000 / 1000 Output Total 150 / 150 Balance 1850 / 2660.417 850 / 850 Intake: IV 1000 / 9222.429 4039 / 1000 Sodium Chloride 0.9% 1000ML 1, 1000 / 1000 1000 / 1000 000 ml @ 125 mls/hr IV .Q8H ROGELIO Rx#:[id number] Oral 850 / 850 Output: Urine 150 / 150 Other: # Unmeasured Voids 1 1 PG Care Time/CCT Total # of Minutes Spent Total Time Spent with Patient: Total time spent is greater than 50% in coordination of care (as documented) at patient's floor/unit and/or counseling patient: Coding Level of Care Code 33340 Inpt Consult Level 3 Diagnoses Atrial fibrillation I48.91
[2021-06-01] MEDS: VESICARE~ORDER AWAITING ACTION SCH ×4 (01:30→23:48)
[2021-06-01] MEDS: PANTOprazole 40 MG TAB PO SCH ×2 (02:09→09:39)
[2021-06-01] MEDS: MELATONIN 3 MG TAB PO PRN ×2 (02:27→21:11)
[2021-06-01 06:37] LABS: Basophils # (auto) 0.01 K/uL (0-0.2); Basophils % (auto) 0.2 %; Hematocrit (blood only) 39.2 % (37-47); Hemoglobin 12.9 g/dL (12.0-16.0); Immature Granulocytes # (auto) 0.03 K/uL (0.00-0.02); Immature Granulocytes % (auto) 0.6 %; Lymphocytes # (auto) 0.52 K/uL (1.2-3.4); Lymphocytes % (auto) 9.8 %; Mean Corpuscular Hemoglobin 27.2 pg (25-34); Mean Corpuscular Hgb Conc 32.9 g/dL (32-36); Mean Corpuscular Volume 82.7 fL (80-100); Mean Platelet Volume 11.4 fL (7.4-10.4); Monocytes # (auto) 0.37 K/uL (0.11-0.59); Monocytes % (auto) 6.9 %; Neutrophils % (auto) 82.5 %; Platelet Count 202 K/uL (130-400); RDW Coefficient of Variation 14.8 % (11.5-14.5); RDW Standard Deviation 45.2 fL (36.4-46.3); Red Blood Count 4.74 M/uL (4.2-5.4); White Blood Count 5.33 K/uL (4.8-10.8)
[2021-06-01 07:13] LABS: Albumin Globulin Ratio 0.6 (0.9-2); Albumin Level 2.4 gm/dl (3.4-5.0); BUN Creatinine Ratio 19.7 (10-20); Bilirubin,Total 0.6 mg/dl (0.2-1); C Reactive Protein 9.58 mg/dl (0-0.29); Calcium 9.8 mg/dl (8.5-10.1); Creatinine Clr Calc Pharmacy 80.6 ml/min; Est GFR (African American) 81.6 ml/min; Est GFR (Non-African American) 70.4 ml/min; Globulin 3.7 gm/dl (2.5-4.0); Magnesium 2.4 mg/dl (1.8-2.4); Total Protein 6.1 gm/dl (6.4-8.2)
[2021-06-01] MEDS: ENOXAPARIN INJ 120 MG/0.8 ML SYR SQ SCH ×2 (09:38→21:02)
[2021-06-01] MEDS: dexAMETHasone 6 MG in SYRINGE 0 ML IV SCH (09:38)
[2021-06-01] MEDS: LOSARTAN POTASSIUM 25 MG TAB PO SCH (09:40)
[2021-06-01] MEDS: FAMOTIDINE 40 MG TABLET PO SCH (09:40)
--- NOTE | 2021-06-01 11:21 | Cardiology Progress Note ---
Date of Service June 01, 2021 Assessment & Plan (1) Atrial fibrillation: Plan: 1. Atrial fibrillation: Based on her record here it seems that atrial fibrillation is a new diagnosis, at home she is on aspirin but not an anticoagulant. Her DSB6CE3-RJIr score is 2 (1 for hypertension and 1 for female gender) and she should probably be on an anticoagulant over the long run and I would recommend starting Eliquis. If the atrial fibrillation is related to the COVID-19 diagnosis she may not need long-term therapy but it may be difficult to tell if that is the case. Long-term monitoring may be required to make that determination. Heart rate control does not seem to be much of an issue, at least at rest, although perhaps a slight decrease in heart rate would be in order. Beta-blockade could be used instead of losartan and may treat her atrial fibrillation and her blood pressure. I have made that switch today. 2. High blood pressure: She has a history of hypertension and is on losartan, here her blood pressures have been good except for a few isolated readings. I would like to start at least low-dose beta-blockade and therefore I am going to discontinue the losartan. Admission and Anticipated Discharge Date Admission Date: May 30, 2021 Subjective I did not interview her due to her COVID-19 diagnosis. Physical Exam Physical Exam: I did not examine her due to COVID-19 infection. Results & Data ([facility]) Vital Signs (Past 12 Hours) Vital Signs Temp Pulse Pulse Pulse Resp BP BP 06/01/21 07:26 36.7 C 88 16 112/80 06/01/21 04:00 36.4 C L 89 20 99/65 L 06/01/21 02:01 98 H 06/01/21 01:26 36.4 C L 86 18 117/74 05/31/21 23:39 36.7 C 83 18 131/84 Pulse Ox 06/01/21 07:26 95 06/01/21 04:00 92 06/01/21 02:01 06/01/21 01:26 92 05/31/21 23:39 91 Laboratory Results Cardiac Enzymes 06/01/21 Range/Units 05:36 AST 70 H (15-37) U/L CBC 06/01/21 Range/Units 05:36 WBC 5.33 (4.8-10.8) K/uL RBC 4.74 (4.2-5.4) M/uL Hgb 12.9 (12.0-16.0) g/dL Hct 39.2 (37-47) % Plt Count 202 (130-400) K/uL Neut # (Auto) 4.40 (1.4-6.5) K/uL Lymph # (Auto) 0.52 L (1.2-3.4) K/uL [place] # (Auto) 0.37 (0.11-0.59) K/uL Eos # (Auto) 0.00 (0-0.5) K/uL Baso # (Auto) 0.01 (0-0.2) K/uL Comprehensive Metabolic Panel 06/01/21 Range/Units 05:36 Sodium 138 (136-145) mmol/L Potassium 4.0 D (3.5-5.1) mmol/L Chloride 107 (98-107) mmol/L Carbon Dioxide 22 (21-32) mmol/L BUN 18 (7-18) mg/dl Creatinine 0.89 (0.6-1.2) mg/dl Glucose 109 H (70-99) mg/dl Calcium 9.8 (8.5-10.1) mg/dl AST 70 H (15-37) U/L ALT 57 (12-78) Alkaline Phosphatase 88 (45-117) U/L Total Protein 6.1 L (6.4-8.2) gm/dl Albumin 2.4 L (3.4-5.0) gm/dl Intake and Output 05/31/21 06/01/21 06/01/21 22:59 06:59 14:59 Intake Total 150 / 1150 Balance 150 / 1000 Intake: Oral 150 / 150 Other: # Unmeasured Voids 1 1 Weight 111.3 kg Diagnostic Findings Telemetry: Atrial fibrillation with a heart rate typically ranging 80 to 110 bpm PG Care Time/CCT Total # of Minutes Spent Total Time Spent with Patient: Total time spent is greater than 50% in coordination of care (as documented) at patient's floor/unit and/or counseling patient: Coding Level of Care Code 55723 Subseq Hosp Care Lvl 2 Diagnoses Atrial fibrillation I48.91
--- NOTE | 2021-06-01 13:10 | Hospitalist Progress Note ---
Date of Service June 01, 2021 Assessment & Plan (1) COVID-19: Plan: Patient presents with symptoms of Covid-19 that started approximately 8 days prior to admission and she was tested at an urgent care at an outside facility which was positive. She is fully vaccinated earlier this year, but had not yet received a Covid booster. She remains on 3 L nasal cannula keep pulse ox at 92-93% Chest x-ray showed with bilateral basilar pneumonia CRP significantly elevated at 11.0, AST mildly elevated at 81 secondary to Covid-19 Covid-19 pneumonia and acute respiratory failure with hypoxia -Continue dexamethasone 6 mg IV once daily -Outside the window for benefit from Remdesivir -Tylenol as needed for fevers -Add on incentive spirometry and flutter valve -Encouraged side or prone positioning -Follow CBC, CMP, CRP in the morning -If she requires high flow nasal cannula with FiO2 greater than 40% within the first 72 hours of admission, she would qualify for baricitinib (2) Atrial fibrillation: Plan: With new onset atrial fibrillation noted on ECG here. Her initial ECG was sinus rhythm as was a previous ECG in our records. Patient has no recollection of ever having atrial fibrillation in the past She is not overtly symptomatic with this. Her rates are in the low 100s at times on ECG, but she is not on a traffic monitor specialist here. [id number] score is 2 for female gender and history of hypertension HAS-BLED score for major bleeding risk is low at 1, however does have a history of recently coiled cerebral aneurysm in 2020. She was told by her neurosurgeon that this is not at risk for rupture currently and I do not believe that she has a high risk for bleeding at this time. -Transfer to telemetry for closer monitoring -Check echocardiogram -Consult cardiology for further evaluation and management -For now, increase Lovenox to therapeutic dosing at 1 mg/KG SQ every 12 hours, -Will discharge patient on Eliquis (3) Acute metabolic encephalopathy: Plan: Now resolved (4) Acute respiratory failure with hypoxia: Plan: As above, secondary to Covid-19 pneumonia On 3L of oxygen through nsal canula wean as tolerated (5) Acute hyponatremia: Plan: Resolved following IV saline (6) Hypokalemia: Plan: resolved (7) Hypertension: Plan: Chronic. Stable. Blood pressure well controlled -Continue Losartan 25mg po daily -Monitor (8) GERD (gastroesophageal reflux disease): Plan: Chronic. Stable -Pepcid daily (9) Cerebral arterial aneurysm: Plan: In the anterior communicating artery, performed in 2019 at [facility] in [place] She has a history of a web coil being placed by her neurosurgery at [facility] in [place] in an anterior communicating artery aneurysm approximately 1 year ago. She reports she had a follow-up MRI since that time in 11/2020 which showed 50% reduction in the size of her aneurysm and her neurosurgeon told her that she is not at risk for rupture at this time. (10) Obesity: Plan: BMI 43.7 Was counselled on diet and exercise Plan: Prophylaxis-Lovenox SQ Disposition-continued stay and transfer to telemetry unit on Covid precautions Admission and Anticipated Discharge Date Admission Date: May 30, 2021 Subjective Patient seen and examined today, still on 3L of oxygen Review of Systems Review of Systems: All systems reviewed are negative, apart from the ones contained in the history. Physical Exam Physical Exam: The patient is awake, alert and oriented 3, well developed and well nourished, normocephalic and atraumatic, lying in bed and in no acute distress. obese HEENT--PERRL, EOMI, mucous membranes and oropharynx mildly dry Neck--supple. No JVD. No bruits. Thyroid normal, trachea midline, no adenopathy. Heart--normal S1 and S2. No murmurs, rubs or gallops. Lungs--Reduced air entry on auscultation Abdomen--normal bowel sounds and soft. Mild epigastric and left sided abdominal pain Extremities--no cyanosis or clubbing. No edema. Dermatologic--normal skin turgor, normal color, no abnormal lymph nodes, no rash. Neurologic--cranial nerves II through XII grossly intact. Rheumatologic--normal range of motion. Psychiatric--normal affect. Results & Data Results & Data ([facility]) Vital Signs (Past 12 Hours) Vital Signs Temp Pulse Pulse Pulse Resp BP BP 06/01/21 12:55 86 06/01/21 11:24 97.0 F L 90 20 113/70 06/01/21 07:26 98.1 F 88 16 112/80 06/01/21 04:00 97.5 F L 89 20 99/65 L 06/01/21 02:01 98 H 06/01/21 01:26 97.5 F L 86 18 117/74 Pulse Ox 06/01/21 12:55 06/01/21 11:24 91 06/01/21 07:26 95 06/01/21 04:00 92 06/01/21 02:01 06/01/21 01:26 92 Laboratory Results Laboratory Results - last 24 hr 06/01/21 06/01/21 05:36 05:36 WBC 5.33 RBC 4.74 Hgb 12.9 Hct 39.2 MCV 82.7 MCH 27.2 MCHC 32.9 RDW Std Deviation 45.2 RDW Coeff of Dorothy 14.8 H Plt Count 202 MPV 11.4 H Immature Gran % (Auto) 0.6 Neut % (Auto) 82.5 Lymph % (Auto) 9.8 [place] % (Auto) 6.9 Eos % (Auto) 0.0 Baso % (Auto) 0.2 Neut # (Auto) 4.40 Lymph # (Auto) 0.52 L [place] # (Auto) 0.37 Eos # (Auto) 0.00 Baso # (Auto) 0.01 Immature Gran # (Auto) 0.03 H Sodium 138 Potassium 4.0 D Chloride 107 Carbon Dioxide 22 Anion Gap 9.0 BUN 18 Creatinine 0.89 Est Cr Clr Drug Dosing 80.6 Est GFR ( Amer) 81.6 Est GFR (Non-Af Amer) 70.4 BUN/Creatinine Ratio 19.7 Glucose 109 H Calcium 9.8 Magnesium 2.4 Total Bilirubin 0.6 AST 70 H ALT 57 Alkaline Phosphatase 88 C-Reactive Protein 9.58 H Total Protein 6.1 L Albumin 2.4 L Globulin 3.7 Albumin/Globulin Ratio 0.6 L PG Care Time/CCT Total # of Minutes Spent Total Time Spent with Patient: Total time spent is greater than 50% in coordination of care (as documented) at patient's floor/unit and/or counseling patient: Coding Level of Care Code 90383 Subseq Hosp Care Lvl 2 Diagnoses COVID-19 U07.1 Atrial fibrillation I48.91 Acute metabolic encephalopathy G93.41 Acute respiratory failure with hypoxia J96.01 Acute hyponatremia E87.1 Hypokalemia E87.6 Hypertension I10 GERD (gastroesophageal reflux disease) K21.9 Cerebral arterial aneurysm I67.1 Obesity E66.9 Time Spent (min) 35
[2021-06-01] MEDS: METOPROLOL TARTRATE 25 MG TAB PO SCH ×2 (14:20→21:03)
[2021-06-02] MEDS ORDERED: COUGH DROP (SUGAR FREE) LOZ 24 LOZ/1 BOX BUCCAL PRN (01:06)
[2021-06-02] MEDS: BENZONATATE 100 MG CAPSULE PO PRN (01:11)
[2021-06-02] MEDS: VESICARE~ORDER AWAITING ACTION SCH ×2 (08:45→15:38)
[2021-06-02] MEDS: dexAMETHasone 6 MG in SYRINGE 0 ML IV SCH (08:46)
[2021-06-02] MEDS: METOPROLOL TARTRATE 25 MG TAB PO SCH (08:46)
[2021-06-02] MEDS: PANTOprazole 40 MG TAB PO SCH (08:47)
[2021-06-02] MEDS: FAMOTIDINE 40 MG TABLET PO SCH (08:47)
[2021-06-02 09:24] LABS: Hematocrit (blood only) 38.7 % (37-47); Mean Corpuscular Hemoglobin 27.8 pg (25-34); Mean Corpuscular Hgb Conc 33.6 g/dL (32-36); Mean Corpuscular Volume 82.7 fL (80-100); Mean Platelet Volume 10.9 fL (7.4-10.4); Platelet Count 272 K/uL (130-400); RDW Coefficient of Variation 14.7 % (11.5-14.5); RDW Standard Deviation 44.8 fL (36.4-46.3); Red Blood Count 4.68 M/uL (4.2-5.4); White Blood Count 5.59 K/uL (4.8-10.8)
[2021-06-02 09:45] LABS: BUN Creatinine Ratio 26.7 (10-20); Calcium 9.9 mg/dl (8.5-10.1); Est GFR (African American) 52.6 ml/min; Est GFR (Non-African American) 45.4 ml/min; Potassium 3.3 mmol/L (3.5-5.1)
[2021-06-02] MEDS: ENOXAPARIN INJ 120 MG/0.8 ML SYR SQ SCH (09:54)
--- NOTE | 2021-06-02 13:23 | Cardiology Progress Note ---
Date of Service June 02, 2021 Assessment & Plan (1) Atrial fibrillation: (2) Hypertension: Plan: 1. Atrial fibrillation: Based on her record here it seems that atrial fibrillation is a new diagnosis, at home she is on aspirin but not an anticoagulant. Her ITP7PT4-QNMg score is 2 (1 for hypertension and 1 for female gender) and she should probably be on an anticoagulant over the long run and I would recommend starting Eliquis. If the atrial fibrillation is related to the COVID-19 diagnosis she may not need long-term therapy but it may be difficult to tell if that is the case. Long-term monitoring may be required to make that determination. Heart rate control is acceptable at rest, although somewhat elevated when active. I am going to increase her beta-tyson today. 2. High blood pressure: She has a history of hypertension and was on losartan, here I changed to metoprolol for her atrial fibrillation and her blood pressure appears to be quite good. Admission and Anticipated Discharge Date Admission Date: May 30, 2021 Subjective I did not interview her due to her COVID-19 diagnosis. Physical Exam Physical Exam: I did not examine her due to COVID-19 infection. Results & Data ([facility]) Vital Signs (Past 12 Hours) Vital Signs Temp Pulse Pulse Resp BP Pulse Ox 06/02/21 12:00 36.6 C 80 20 106/73 98 06/02/21 09:46 83 06/02/21 08:26 36.5 C 87 18 115/79 94 06/02/21 04:13 36.1 C L 77 20 120/75 93 Laboratory Results CBC 06/02/21 Range/Units 09:08 WBC 5.59 (4.8-10.8) K/uL RBC 4.68 (4.2-5.4) M/uL Hgb 13.0 (12.0-16.0) g/dL Hct 38.7 (37-47) % Plt Count 272 (130-400) K/uL Comprehensive Metabolic Panel 06/02/21 Range/Units 09:08 Sodium 139 (136-145) mmol/L Potassium 3.3 L D (3.5-5.1) mmol/L Chloride 108 H (98-107) mmol/L Carbon Dioxide 23 (21-32) mmol/L BUN 34 H D (7-18) mg/dl Creatinine 1.28 H D (0.6-1.2) mg/dl Glucose 140 H (70-99) mg/dl Calcium 9.9 (8.5-10.1) mg/dl Intake and Output 06/01/21 06/02/21 06/02/21 22:59 06:59 14:59 Intake Total 150 / 400 250 / 400 Balance 150 / 400 250 / 400 Intake: Oral 150 / 400 250 / 400 Other: Weight 111 kg Diagnostic Findings Telemetry: Atrial fibrillation, heart rate somewhat elevated when active, acceptable but not low at rest. PG Care Time/CCT Total # of Minutes Spent Total Time Spent with Patient: Total time spent is greater than 50% in coordination of care (as documented) at patient's floor/unit and/or counseling patient: Coding Level of Care Code 43448 Subseq Hosp Care Lvl 2 Diagnoses Atrial fibrillation I48.91 Hypertension I10
[2021-06-02] MEDS ORDERED: METOPROLOL TARTRATE 25 MG TAB PO STA (13:27)
[2021-06-02] MEDS ORDERED: POTASSIUM CHLORIDE CRTAB 20 MEQ TABCR PO STA (13:43)
--- NOTE | 2021-06-02 13:43 | Hospitalist Progress Note ---
Date of Service June 02, 2021 Assessment & Plan (1) COVID-19: Plan: Patient presents with symptoms of Covid-19 that started approximately 8 days prior to admission and she was tested at an urgent care at an outside facility which was positive. She is fully vaccinated earlier this year, but had not yet received a Covid booster. She remains on 3 L nasal cannula keep pulse ox at 92-93% Chest x-ray showed with bilateral basilar pneumonia Covid-19 pneumonia and acute respiratory failure with hypoxia -Continue dexamethasone 6 mg IV once daily -Outside the window for benefit from Remdesivir -Tylenol as needed for fevers -Add on incentive spirometry and flutter valve -Encouraged side or prone positioning -Follow CBC, CMP, CRP in the morning (2) Atrial fibrillation: Plan: With new onset atrial fibrillation noted on ECG here. Her initial ECG was sinus rhythm as was a previous ECG in our records. Patient has no recollection of ever having atrial fibrillation in the past She is not overtly symptomatic with this. Her rates are in the low 100s at times on ECG, but she is not on a teletypesetter monitor here. [id number] score is 2 for female gender and history of hypertension HAS-BLED score for major bleeding risk is low at 1, however does have a history of recently coiled cerebral aneurysm in 2020. She was told by her neurosurgeon that this is not at risk for rupture currently and I do not believe that she has a high risk for bleeding at this time. -Cardiology on consult, recs appreciated -Started on Eliquis 5mb BID -Rate controlled with metoprolol (3) Acute metabolic encephalopathy: Plan: Now resolved (4) Acute respiratory failure with hypoxia: Plan: As above, secondary to Covid-19 pneumonia On 3L of oxygen through nsal canula wean as tolerated (5) Acute hyponatremia: Plan: Resolved following IV saline (6) Hypokalemia: Plan: resolved (7) Hypertension: Plan: Chronic. Stable. Blood pressure well controlled -Continue Losartan 25mg po daily -Monitor (8) GERD (gastroesophageal reflux disease): Plan: Chronic. Stable -Pepcid daily (9) Cerebral arterial aneurysm: Plan: In the anterior communicating artery, performed in 2019 at [facility] She has a history of a web coil being placed by her neurosurgery at [facility] in an anterior communicating artery aneurysm approximately 1 year ago. She reports she had a follow-up MRI since that time in 11/2020 which showed 50% reduction in the size of her aneurysm and her neurosurgeon told her that she is not at risk for rupture at this time. (10) Obesity: Plan: BMI 43.7 Was counselled on diet and exercise Plan: Prophylaxis-Lovenox SQ Disposition-continued stay Admission and Anticipated Discharge Date Admission Date: May 30, 2021 Subjective patient seen and examined, fells weak, denies chest pain Review of Systems Review of Systems: All systems reviewed are negative, apart from the ones contained in the history. Physical Exam Physical Exam: The patient is awake, alert and oriented 3, well developed and well nourished, normocephalic and atraumatic, lying in bed and in no acute distress. obese HEENT--PERRL, EOMI, mucous membranes and oropharynx mildly dry Neck--supple. No JVD. No bruits. Thyroid normal, trachea midline, no adenopathy. Heart--normal S1 and S2. No murmurs, rubs or gallops. Lungs--Reduced air entry on auscultation Abdomen--normal bowel sounds and soft. Mild epigastric and left sided abdominal pain Extremities--no cyanosis or clubbing. No edema. Dermatologic--normal skin turgor, normal color, no abnormal lymph nodes, no rash. Neurologic--cranial nerves II through XII grossly intact. Rheumatologic--normal range of motion. Psychiatric--normal affect. Results & Data Results & Data ([facility]) Vital Signs (Past 12 Hours) Vital Signs Temp Pulse Pulse Resp BP Pulse Ox 06/02/21 12:00 97.9 F 80 20 106/73 98 06/02/21 09:46 83 06/02/21 08:26 97.7 F 87 18 115/79 94 06/02/21 04:13 97.0 F L 77 20 120/75 93 PG Care Time/CCT Total # of Minutes Spent Total Time Spent with Patient: Total time spent is greater than 50% in coordination of care (as documented) at patient's floor/unit and/or counseling patient: Coding Level of Care Code 64201 Subseq Hosp Care Lvl 2 Diagnoses COVID-19 U07.1 Atrial fibrillation I48.91 Acute metabolic encephalopathy G93.41 Acute respiratory failure with hypoxia J96.01 Acute hyponatremia E87.1 Hypokalemia E87.6 Hypertension I10 GERD (gastroesophageal reflux disease) K21.9 Cerebral arterial aneurysm I67.1 Obesity E66.9 Time Spent (min) 35
--- NOTE | 2021-06-02 19:37 | Electrocardiogram Report ---
Test Reason : Blood Pressure : / mmHG Vent. Rate : 114 BPM Atrial Rate : 326 BPM P-R Int : 000 ms QRS Dur : 084 ms QT Int : 336 ms P-R-T Axes : 000 002 010 degrees QTc Int : 463 ms Atrial fibrillation with rapid ventricular response Abnormal ECG When compared with ECG of 30-MAY-2021 00:18, (unconfirmed) Atrial fibrillation has replaced Sinus rhythm Confirmed by Shade Contreras ([id number]) on 06/02/2021 7:37:30 PM Referred By: REFERRED SELF Confirmed By:Shade Contreras
[2021-06-02] MEDS: ACETAMINOPHEN 325 MG TAB PO PRN (19:39)
[2021-06-02] MEDS: METOPROLOL TARTRATE 50 MG TAB PO SCH (20:48)
[2021-06-02] MEDS: APIXABAN 5 MG TABLET PO SCH (20:49)
[2021-06-03] MEDS: VESICARE~ORDER AWAITING ACTION SCH ×4 (00:02→23:19)
[2021-06-03] MEDS ORDERED: CYCLOBENZAPRINE HCL 10 MG TAB PO STA (03:51)
[2021-06-03] MEDS: ACETAMINOPHEN 325 MG TAB PO PRN (08:54)
[2021-06-03] MEDS: METOPROLOL TARTRATE 50 MG TAB PO SCH ×2 (08:55→20:14)
[2021-06-03] MEDS: APIXABAN 5 MG TABLET PO SCH ×2 (08:55→20:14)
[2021-06-03] MEDS: FAMOTIDINE 40 MG TABLET PO SCH (08:55)
[2021-06-03] MEDS: PANTOprazole 40 MG TAB PO SCH (08:55)
[2021-06-03] MEDS: dexAMETHasone 6 MG in SYRINGE 0 ML IV SCH (08:55)
[2021-06-03] MEDS ORDERED: POLYETHYLENE (MIRALAX) 17 GM PACK ONE (09:15)
[2021-06-03] MEDS ORDERED: MELATONIN 3 MG TAB PO PRN (10:18)
--- NOTE | 2021-06-03 13:31 | Hospitalist Progress Note ---
Date of Service June 03, 2021 Assessment & Plan (1) COVID-19: Plan: Patient presents with symptoms of Covid-19 that started approximately 8 days prior to admission and she was tested at an urgent care at an outside facility which was positive. She is fully vaccinated earlier this year, but had not yet received a Covid booster. She remains on 3 L nasal cannula keep pulse ox at 92-93% Chest x-ray showed with bilateral basilar pneumonia Covid-19 pneumonia and acute respiratory failure with hypoxia -Continue dexamethasone 6 mg IV once daily -Outside the window for benefit from Remdesivir -Tylenol as needed for fevers -Encouraged side or prone positioning -Follow CBC, CMP, CRP in the morning (2) Atrial fibrillation: Plan: [id number] of 2 -Started on Eliquis 5mb BID -Rate controlled with metoprolol (3) Acute metabolic encephalopathy: Plan: Daniel Jimenez was called earlier today on account of poor response Upon further evaluation her BP was difficult to obtain Was started on fluid bolus all the while, was weak, but conversational (4) Acute respiratory failure with hypoxia: Plan: As above, secondary to Covid-19 pneumonia On 3L of oxygen through nsal canula wean as tolerated (5) Acute hyponatremia: Plan: Resolved following IV saline (6) Hypokalemia: Plan: resolved (7) Hypertension: Plan: Hold anti hypertensive meds on account of low BP (8) GERD (gastroesophageal reflux disease): Plan: Chronic. Stable -Pepcid daily (9) Cerebral arterial aneurysm: Plan: In the anterior communicating artery, performed in 2019 at [facility] She has a history of a web coil being placed by her neurosurgery at [facility] in an anterior communicating artery aneurysm approximately 1 year ago. She reports she had a follow-up MRI since that time in 11/2020 which showed 50% reduction in the size of her aneurysm and her neurosurgeon told her that she is not at risk for rupture at this time. (10) Obesity: Plan: BMI 43.7 Was counselled on diet and exercise Plan: Prophylaxis-Lovenox SQ Disposition-continued stay Admission and Anticipated Discharge Date Admission Date: May 30, 2021 Subjective patient seen and examined, fells weak, denies chest pain, however, daniel jimenez was called later in the day for poor response Review of Systems Review of Systems: All systems reviewed are negative, apart from the ones contained in the history. Physical Exam Physical Exam: The patient is awake, alert and oriented 3, well developed and well nourished, normocephalic and atraumatic, lying in bed and in no acute distress. obese HEENT--PERRL, EOMI, mucous membranes and oropharynx mildly dry Neck--supple. No JVD. No bruits. Thyroid normal, trachea midline, no adenopathy. Heart--normal S1 and S2. No murmurs, rubs or gallops. Lungs--Reduced air entry on auscultation Abdomen--normal bowel sounds and soft. Mild epigastric and left sided abdominal pain Extremities--no cyanosis or clubbing. No edema. Dermatologic--normal skin turgor, normal color, no abnormal lymph nodes, no rash. Neurologic--cranial nerves II through XII grossly intact. Rheumatologic--normal range of motion. Psychiatric--normal affect. Results & Data Results & Data ([facility]) Vital Signs (Past 12 Hours) Vital Signs Temp Pulse Pulse Pulse Resp BP BP 06/03/21 11:53 96.6 F L 91 H 20 83/57 L 06/03/21 10:15 83 06/03/21 07:31 96.6 F L 80 20 06/03/21 03:38 98.1 F 88 20 118/87 Pulse Ox 06/03/21 11:53 94 06/03/21 10:15 06/03/21 07:31 98 06/03/21 03:38 95 PG Care Time/CCT Total # of Minutes Spent Total Time Spent with Patient: Total time spent is greater than 50% in coordination of care (as documented) at patient's floor/unit and/or counseling patient: Prolonged Care Time 40 min Coding Level of Care Code 88711 Subseq Hosp Care Lvl 2 Diagnoses COVID-19 U07.1 Atrial fibrillation I48.91 Acute metabolic encephalopathy G93.41 Acute respiratory failure with hypoxia J96.01 Acute hyponatremia E87.1 Hypokalemia E87.6 Hypertension I10 GERD (gastroesophageal reflux disease) K21.9 Cerebral arterial aneurysm I67.1 Obesity E66.9 Time Spent (min) 40
[2021-06-03] MEDS ORDERED: SODIUM CHLORIDE 0.9% 1000ML 1,000 ML IV ONE (14:22)
[2021-06-03 14:54] LABS: Hematocrit (blood only) 32.6 % (37-47); Hemoglobin 10.4 g/dL (12.0-16.0); Mean Corpuscular Hemoglobin 27.6 pg (25-34); Mean Corpuscular Volume 86.5 fL (80-100); Mean Platelet Volume 11.2 fL (7.4-10.4); Platelet Count 359 K/uL (130-400); RDW Coefficient of Variation 15.2 % (11.5-14.5); RDW Standard Deviation 48.5 fL (36.4-46.3); Red Blood Count 3.77 M/uL (4.2-5.4); White Blood Count 11.28 K/uL (4.8-10.8)
[2021-06-03 14:56] LABS: Mean Corpuscular Hgb Conc 31.9 g/dL (32-36)
[2021-06-03 15:13] LABS: BUN Creatinine Ratio 23.9 (10-20); Calcium 9.3 mg/dl (8.5-10.1); Creatinine Clr Calc Pharmacy 39.3 ml/min; Est GFR (African American) 34.4 ml/min; Est GFR (Non-African American) 29.7 ml/min; Potassium 4.7 mmol/L (3.5-5.1)
[2021-06-03] MEDS ORDERED: SODIUM CHLORIDE 0.9% 1000ML 500 ML IV ONE ×2 (19:46→23:11)
--- NOTE | 2021-06-04 06:36 | Electrocardiogram Report ---
Test Reason : Blood Pressure : / mmHG Vent. Rate : 098 BPM Atrial Rate : 441 BPM P-R Int : 000 ms QRS Dur : 080 ms QT Int : 356 ms P-R-T Axes : 000 000 -16 degrees QTc Int : [address] elevation consider lateral injury or acute infarct Abnormal ECG When compared with ECG of 31-MAY-2021 10:52, ST more elevated in Lateral leads Confirmed by Bryan Ray ([id number]) on 06/04/2021 6:36:44 AM Referred By: REFERRED SELF Confirmed By:Bryan Ray
[2021-06-04] MEDS: VESICARE~ORDER AWAITING ACTION SCH ×2 (08:44→15:20)
[2021-06-04] MEDS ORDERED: POLYETHYLENE (MIRALAX) 17 GM PACK ONE (09:00)
[2021-06-04] MEDS: dexAMETHasone 6 MG in SYRINGE 0 ML IV SCH (09:10)
[2021-06-04] MEDS: ACETAMINOPHEN 325 MG TAB PO PRN (09:10)
[2021-06-04] MEDS: BENZONATATE 100 MG CAPSULE PO PRN (09:10)
[2021-06-04] MEDS: APIXABAN 5 MG TABLET PO SCH ×2 (09:11→21:01)
[2021-06-04] MEDS: FAMOTIDINE 40 MG TABLET PO SCH (09:11)
[2021-06-04] MEDS: PANTOprazole 40 MG TAB PO SCH (09:11)
[2021-06-04] MEDS: METOPROLOL TARTRATE 50 MG TAB PO SCH ×2 (09:11→20:39)
[2021-06-04 09:13] LABS: Hematocrit (blood only) 26.7 % (37-47); Hemoglobin 8.6 g/dL (12.0-16.0); Mean Corpuscular Hemoglobin 27.7 pg (25-34); Mean Corpuscular Hgb Conc 32.2 g/dL (32-36); Mean Corpuscular Volume 86.1 fL (80-100); Mean Platelet Volume 10.2 fL (7.4-10.4); Platelet Count 319 K/uL (130-400); RDW Coefficient of Variation 15.3 % (11.5-14.5); RDW Standard Deviation 48.2 fL (36.4-46.3); White Blood Count 8.23 K/uL (4.8-10.8)
[2021-06-04 10:07] LABS: BUN Creatinine Ratio 32.3 (10-20); Calcium 8.8 mg/dl (8.5-10.1); Est GFR (African American) 57.5 ml/min; Est GFR (Non-African American) 49.6 ml/min; Potassium 3.8 mmol/L (3.5-5.1)
--- NOTE | 2021-06-04 12:54 | Hospitalist Progress Note ---
Date of Service June 04, 2021 Assessment & Plan (1) COVID-19: Plan: Patient presents with symptoms of Covid-19 that started approximately 8 days prior to admission and she was tested at an urgent care at an outside facility which was positive. She is fully vaccinated earlier this year, but had not yet received a Covid booster. She remains on 3 L nasal cannula keep pulse ox at 92-93% -Continue dexamethasone 6 mg IV once daily -Tylenol as needed for fevers -Encouraged side or prone positioning -Follow CBC, CMP, CRP in the morning (2) Atrial fibrillation: Plan: [id number] of 2 -Started on Eliquis 5mb BID -Rate controlled with metoprolol -EKG done this morning showed some ST elevation -will obtain trop and 2 D ECHO (3) Acute metabolic encephalopathy: Plan: now resolved (4) Acute respiratory failure with hypoxia: Plan: As above, secondary to Covid-19 pneumonia On 3L of oxygen through nsal canula wean as tolerated (5) Acute hyponatremia: Plan: Resolved following IV saline (6) Hypokalemia: Plan: resolved (7) Hypertension: Plan: Hold anti hypertensive meds on account of low BP (8) GERD (gastroesophageal reflux disease): Plan: Chronic. Stable -Pepcid daily (9) Cerebral arterial aneurysm: Plan: In the anterior communicating artery, performed in 2019 at [facility] She has a history of a web coil being placed by her neurosurgery at [facility] in an anterior communicating artery aneurysm approximately 1 year ago. She reports she had a follow-up MRI since that time in 11/2020 which showed 50% reduction in the size of her aneurysm and her neurosurgeon told her that she is not at risk for rupture at this time. (10) Obesity: Plan: BMI 43.7 Was counselled on diet and exercise Plan: Prophylaxis-Lovenox SQ Disposition-continued stay Admission and Anticipated Discharge Date Admission Date: May 30, 2021 Subjective patient seen and examined, denies chest pain, SOB is better Review of Systems Review of Systems: All systems reviewed are negative, apart from the ones contained in the history. Physical Exam Physical Exam: The patient is awake, alert and oriented 3, well developed and well nourished, normocephalic and atraumatic, lying in bed and in no acute distress. obese HEENT--PERRL, EOMI, mucous membranes and oropharynx mildly dry Neck--supple. No JVD. No bruits. Thyroid normal, trachea midline, no adenopathy. Heart--normal S1 and S2. No murmurs, rubs or gallops. Lungs--Reduced air entry on auscultation Abdomen--normal bowel sounds and soft. Mild epigastric and left sided abdominal pain Extremities--no cyanosis or clubbing. No edema. Dermatologic--normal skin turgor, normal color, no abnormal lymph nodes, no rash. Neurologic--cranial nerves II through XII grossly intact. Rheumatologic--normal range of motion. Psychiatric--normal affect. Results & Data Results & Data ([facility]) Vital Signs (Past 12 Hours) Vital Signs Temp Pulse Pulse Pulse Resp BP Pulse Ox 06/04/21 11:48 98.2 F 91 H 20 108/73 94 06/04/21 10:56 102 H 06/04/21 07:43 97.9 F 93 H 20 127/74 92 06/04/21 03:27 97.9 F 92 H 18 121/77 96 PG Care Time/CCT Total # of Minutes Spent Total Time Spent with Patient: Total time spent is greater than 50% in coordination of care (as documented) at patient's floor/unit and/or counseling patient: Coding Level of Care Code 78586 Subseq Hosp Care Lvl 2 Diagnoses COVID-19 U07.1 Atrial fibrillation I48.91 Acute metabolic encephalopathy G93.41 Acute respiratory failure with hypoxia J96.01 Acute hyponatremia E87.1 Hypokalemia E87.6 Hypertension I10 GERD (gastroesophageal reflux disease) K21.9 Cerebral arterial aneurysm I67.1 Obesity E66.9 Time Spent (min) 35
[2021-06-04] MEDS ORDERED: bisacodyL 10 MG SUPP PR STA (15:54)
[2021-06-04] MEDS ORDERED: bisacodyL 10 MG SUPP PR ONE (15:55)
[2021-06-05] MEDS: VESICARE~ORDER AWAITING ACTION SCH ×2 (00:02→21:28)
[2021-06-05] MEDS: dexAMETHasone 6 MG in SYRINGE 0 ML IV SCH (08:30)
[2021-06-05] MEDS: APIXABAN 5 MG TABLET PO SCH ×2 (08:31→20:24)
[2021-06-05] MEDS: FAMOTIDINE 40 MG TABLET PO SCH (08:31)
[2021-06-05] MEDS: PANTOprazole 40 MG TAB PO SCH (08:31)
[2021-06-05] MEDS: METOPROLOL TARTRATE 50 MG TAB PO SCH ×2 (08:32→20:25)
--- NOTE | 2021-06-05 13:38 | Cardiology Progress Note ---
Date of Service June 05, 2021 Assessment & Plan (1) Atrial fibrillation: (2) Hypertension: Plan: 1. Atrial fibrillation: Based on her record here it seems that atrial fibrillation is a new diagnosis, at home she was on aspirin but not an anticoagulant. Her [id number] score is 2 (1 for hypertension and 1 for female gender) and she should probably be on an anticoagulant over the long run and I would recommend using Eliquis. If the atrial fibrillation is related to the COVID-19 diagnosis she may not need long-term therapy but it may be difficult to tell if that is the case. Long-term monitoring may be required to make that determination. Heart rate control is still not ideal with her heart rate averaging around 100 2. High blood pressure: She has a history of hypertension and was on losartan, here I changed to metoprolol for her atrial fibrillation and her blood pressure has been running low. With her high heart rate I am reluctant to decrease her metoprolol. Admission and Anticipated Discharge Date Admission Date: May 30, 2021 Subjective I did not interview her due to her COVID-19 diagnosis. Physical Exam Physical Exam: I did not examine her due to COVID-19 infection. Results & Data ([facility]) Vital Signs (Past 12 Hours) Vital Signs Temp Pulse Pulse Resp BP BP Pulse Ox 06/05/21 11:38 36.7 C 82 18 98/63 L 95 06/05/21 08:00 36.7 C 104 H 18 115/83 96 06/05/21 02:45 36.6 C 90 18 119/76 94 Laboratory Results Cardiac Enzymes 06/04/21 Range/Units 13:01 Troponin I < 0.015 (0-0.045) ng/ml Intake and Output 06/04/21 06/05/21 06/05/21 22:59 06:59 14:59 Intake Total 100 / 520 100 / 520 Output Total 400 / 2100 700 / 2100 Balance -300 / -1580 -600 / -1580 Intake: Oral 100 / 520 100 / 520 Output: Urine Amount (Catheter) 400 / 2100 700 / 2100 External 400 / 2100 700 / 2100 Other: # Unmeasured Voids 1 Weight 111.4 kg Weight Measurement Method Built in [facility] Diagnostic Findings Telemetry: Atrial fibrillation with an average heart rate of about 100 bpm. PG Care Time/CCT Total # of Minutes Spent Total Time Spent with Patient: Total time spent is greater than 50% in coordination of care (as documented) at patient's floor/unit and/or counseling patient: Coding Level of Care Code 16226 Subseq Hosp Care Lvl 2 Diagnoses Atrial fibrillation I48.19 Atrial fibrillation type: persistent (not longstanding) Hypertension I10 Hypertension type: primary hypertension (1) Atrial fibrillation Atrial fibrillation type: persistent (not longstanding) Qualified Code(s): I48.19 - Other persistent atrial fibrillation (2) Hypertension Hypertension type: primary hypertension Qualified Code(s): I10 - Essential (primary) hypertension
--- NOTE | 2021-06-05 13:41 | XCELERA ---
[id number]
[2021-06-05] MEDS ORDERED: SODIUM CHLORIDE 0.65% NA SOLN 45 ML (OCEAN) PRN (14:52)
--- NOTE | 2021-06-05 15:02 | Hospitalist Progress Note ---
Date of Service June 05, 2021 Assessment & Plan (1) COVID-19: Plan: Patient presents with symptoms of Covid-19 that started approximately 8 days prior to admission and she was tested at an urgent care at an outside facility which was positive. She is fully vaccinated earlier this year, but had not yet received a Covid booster. She remains on 2 L nasal cannula keep pulse ox at 92-93%. Was not a candidate for Remdesivir -Continue dexamethasone 6 mg IV once daily -Tylenol as needed for fevers -Encouraged side or prone positioning -Follow CBC, CMP, CRP in the morning (2) Atrial fibrillation: Plan: [id number] of 2 -Started on Eliquis 5mb BID -Rate controlled with metoprolol -ECHO did not show any wall motion abnormality, EF 55% (3) Acute metabolic encephalopathy: Plan: now resolved (4) Acute respiratory failure with hypoxia: Plan: As above, secondary to Covid-19 pneumonia On 2L of oxygen through nsal canula wean as tolerated (5) Acute hyponatremia: Plan: Resolved following IV saline (6) Hypokalemia: Plan: resolved (7) Hypertension: Plan: Hold anti hypertensive meds on account of low BP (8) GERD (gastroesophageal reflux disease): Plan: Chronic. Stable -Pepcid daily (9) Cerebral arterial aneurysm: Plan: In the anterior communicating artery, performed in 2019 at [facility] She has a history of a web coil being placed by her neurosurgery at [facility] in an anterior communicating artery aneurysm approximately 1 year ago. She reports she had a follow-up MRI since that time in 11/2020 which showed 50% reduction in the size of her aneurysm and her neurosurgeon told her that she is not at risk for rupture at this time. (10) Obesity: Plan: BMI 43.7 Was counselled on diet and exercise (11) Physical deconditioning: Plan: participating in PT will benefit from pjysical rehab Plan: Prophylaxis-Lovenox SQ Disposition-continued stay Admission and Anticipated Discharge Date Admission Date: May 30, 2021 Discharge to Rehab facility when accepted Subjective patient seen and examined, constipation has resolved, abdominal pain gone Review of Systems Review of Systems: All systems reviewed are negative, apart from the ones contained in the history. Physical Exam Physical Exam: The patient is awake, alert and oriented 3, well developed and well nourished, normocephalic and atraumatic, lying in bed and in no acute distress. obese HEENT--PERRL, EOMI, mucous membranes and oropharynx mildly dry Neck--supple. No JVD. No bruits. Thyroid normal, trachea midline, no adenopathy. Heart--normal S1 and S2. No murmurs, rubs or gallops. Lungs--Reduced air entry on auscultation Abdomen--normal bowel sounds and soft. Mild epigastric and left sided abdominal pain Extremities--no cyanosis or clubbing. No edema. Dermatologic--normal skin turgor, normal color, no abnormal lymph nodes, no rash. Neurologic--cranial nerves II through XII grossly intact. Rheumatologic--normal range of motion. Psychiatric--normal affect. Results & Data Results & Data ([facility]) Vital Signs (Past 12 Hours) Vital Signs Temp Pulse Resp BP BP Pulse Ox 06/05/21 11:38 98.1 F 82 18 98/63 L 95 06/05/21 08:00 98.1 F 104 H 18 115/83 96 PG Care Time/CCT Total # of Minutes Spent Total Time Spent with Patient: Total time spent is greater than 50% in coordination of care (as documented) at patient's floor/unit and/or counseling patient: Coding Level of Care Code 23292 Subseq Hosp Care Lvl 2 Diagnoses COVID-19 U07.1 Atrial fibrillation I48.19 Atrial fibrillation type: persistent (not longstanding) Acute metabolic encephalopathy G93.41 Acute respiratory failure with hypoxia J96.01 Acute hyponatremia E87.1 Hypokalemia E87.6 Hypertension I10 Hypertension type: primary hypertension GERD (gastroesophageal reflux disease) K21.9 Cerebral arterial aneurysm I67.1 Obesity E66.9 Physical deconditioning R53.81 Time Spent (min) 35 (1) Atrial fibrillation Atrial fibrillation type: persistent (not longstanding) Qualified Code(s): I48.19 - Other persistent atrial fibrillation (2) Hypertension Hypertension type: primary hypertension Qualified Code(s): I10 - Essential (primary) hypertension
[2021-06-06] MEDS ORDERED: METOPROLOL TARTRATE 1 MG/ML VIAL IV STA (02:21)
[2021-06-06] MEDS: VESICARE~ORDER AWAITING ACTION SCH ×3 (02:47→19:07)
[2021-06-06] MEDS: dexAMETHasone 6 MG in SYRINGE 0 ML IV SCH (08:55)
[2021-06-06] MEDS: PANTOprazole 40 MG TAB PO SCH (08:56)
[2021-06-06] MEDS: FAMOTIDINE 40 MG TABLET PO SCH (08:56)
[2021-06-06] MEDS: METOPROLOL TARTRATE 50 MG TAB PO SCH ×2 (08:58→20:09)
[2021-06-06] MEDS: APIXABAN 5 MG TABLET PO SCH ×2 (08:59→20:09)
--- NOTE | 2021-06-06 12:34 | Hospitalist Progress Note ---
Date of Service June 06, 2021 Assessment & Plan (1) COVID-19: Plan: Patient presents with symptoms of Covid-19 that started approximately 8 days prior to admission and she was tested at an urgent care at an outside facility which was positive. She is fully vaccinated earlier this year, but had not yet received a Covid booster. She remains on 2 L nasal cannula keep pulse ox at 92-93%. Was not a candidate for Remdesivir -Continue dexamethasone 6 mg IV once daily -Tylenol as needed for fevers -Encouraged side or prone positioning -Follow CBC, CMP, CRP in the morning (2) Atrial fibrillation: Plan: [id number] of 2 -Started on Eliquis 5mb BID -Rate controlled with metoprolol -2 D ECHO did not show any wall motion abnormality, EF 55% -Cardiology on consult, appreciate recs (3) Acute metabolic encephalopathy: Plan: now resolved (4) Acute respiratory failure with hypoxia: Plan: As above, secondary to Covid-19 pneumonia On 2L of oxygen through nsal canula wean as tolerated (5) Acute hyponatremia: Plan: Resolved following IV saline (6) Hypokalemia: Plan: resolved (7) Hypertension: Plan: Hold anti hypertensive meds on account of low BP (8) GERD (gastroesophageal reflux disease): Plan: Chronic. 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 She reports she had a follow-up MRI since that time in 11/2020 which showed 50% reduction in the size of her aneurysm and her neurosurgeon told her that she is not at risk for rupture at this time. (10) Obesity: Plan: BMI 43.7 Was counselled on diet and exercise (11) Physical deconditioning: Plan: participating in PT will benefit from physical rehab Plan: Prophylaxis-Lovenox SQ Disposition- Discharge to Rehab when accepted Admission and Anticipated Discharge Date Admission Date: May 30, 2021 Discharge to [facility] for Rehab when accepted patient is medically stable for discharge to Rehab Subjective patient seen and examined, constipation has resolved, abdominal pain gone, sitting up in the chair, but felt dizzy while transitioning from the bed Review of Systems Review of Systems: All systems reviewed are negative, apart from the ones contained in the history. Physical Exam Physical Exam: The patient is awake, alert and oriented 3, well developed and well nourished, normocephalic and atraumatic, lying in bed and in no acute distress. obese HEENT--PERRL, EOMI, mucous membranes and oropharynx mildly dry Neck--supple. No JVD. No bruits. Thyroid normal, trachea midline, no adenopathy. Heart--normal S1 and S2. No murmurs, rubs or gallops. Lungs--Reduced air entry on auscultation Abdomen--normal bowel sounds and soft. Mild epigastric and left sided abdominal pain Extremities--no cyanosis or clubbing. No edema. Dermatologic--normal skin turgor, normal color, no abnormal lymph nodes, no rash. Neurologic--cranial nerves II through XII grossly intact. Rheumatologic--normal range of motion. Psychiatric--normal affect. Results & Data Results & Data ([facility]) Vital Signs (Past 12 Hours) Vital Signs Temp Pulse Pulse Resp BP BP BP 06/06/21 11:53 98.2 F 90 20 101/71 06/06/21 08:50 106/66 06/06/21 08:00 98.2 F 104 H 20 117/71 06/06/21 06:19 102 H 06/06/21 04:03 97.9 F 85 18 123/90 06/06/21 02:47 112 H 110/71 Pulse Ox 06/06/21 11:53 92 06/06/21 08:50 06/06/21 08:00 93 06/06/21 06:19 06/06/21 04:03 95 06/06/21 02:47 PG Care Time/CCT Total # of Minutes Spent Total Time Spent with Patient: Total time spent is greater than 50% in coordination of care (as documented) at patient's floor/unit and/or counseling patient: Coding Level of Care Code 70296 Subseq Hosp Care Lvl 2 Diagnoses COVID-19 U07.1 Atrial fibrillation I48.19 Atrial fibrillation type: persistent (not longstanding) Acute metabolic encephalopathy G93.41 Acute respiratory failure with hypoxia J96.01 Acute hyponatremia E87.1 Hypokalemia E87.6 Hypertension I10 Hypertension type: primary hypertension GERD (gastroesophageal reflux disease) K21.9 Cerebral arterial aneurysm I67.1 Obesity E66.9 Physical deconditioning R53.81 Time Spent (min) 35 (1) Atrial fibrillation Atrial fibrillation type: persistent (not longstanding) Qualified Code(s): I48.19 - Other persistent atrial fibrillation (2) Hypertension Hypertension type: primary hypertension Qualified Code(s): I10 - Essential (p rimary) hypertension
[2021-06-06] MEDS: oxyCODONE/ACETAMINOPHEN 5mg/325mg TAB PO PRN (20:32)
--- NOTE | 2021-06-06 21:44 | Communication Note ---
Date of Service: June 06, 2021 Contacted by nursing
--- NOTE | 2021-06-06 22:39 | Communication Note ---
Date of Service: June 06, 2021 Contacted by nursing for patient complaint of sudden worsening left abdominal / flank pain. In short, patient is admitted for COVID 19 pneumonia, new onset AFib, and earlier in admission did have hyponatremia. Per nursing and patient she had mild left abdominal/flank cramping earlier in the day. Of note, patient's Hgb has been dropping over the last several days (06/02 Hgb of 13, 06/04 Hgb 8.6, no CBC since that time). CBC and BMP ordered. On exam of patient she is diffusely mildly tender in the abdomen with severe pain worst in left upper quadrant and left flank. Patient has hyperactive tinkling bowel sounds. No rebound tenderness, no guarding. Patient is hemodynamically stable with HR in low 100s (which she has been off and on since admission), BP 110s systolic. Patient was started on Eliquis this admission for AFib and has had decreasing Hgb without other obvious source of bleed and now worsening abdominal pain, so CTAP with IV contrast ordered to evaluate for bowel ischemia and acute bleed. Eliquis held. Hgb noted on STAT labs to be 7.6. CTAP with IV contrast noted to have left retroperitoneal hematoma ([id number]) without evidence of active bleeding. Dr. Marin contacted for initiation of Prothrombin. 2U PRBCs hung after receiving blood consent. General Surgery asked to evaluate patient; no surgical intervention at this time and recommend transfer to IR capable tertiary care center if patient's Hgb were to continue to drop or her clinical status were to worsen despite the above interventions. Patient transferred to PCU. Case discussed with Judd Govea PA-C General Surgery, Dr. Marin Hematology, Dr. Kahn attending hospitalist. Current plan reviewed with patient and with daughter Betty over the phone. Resident Activity Tracking Resident Involvement: Resident Care Provided Care Provided: Adult Hospital Medicine
[2021-06-06] MEDS ORDERED: OPTIRAY 320 100ml IV ONE (22:55)
[2021-06-06] MEDS ORDERED: MoRPHine SULFATE 4 MG/ML 1 ML CARP\\VIAL IV STA (23:28)
[2021-06-06 23:52] LABS: Basophils # (auto) 0.01 K/uL (0-0.2); Basophils % (auto) 0.1 %; Eosinophils # (auto) 0.01 K/uL (0-0.5); Eosinophils % (auto) 0.1 %; Hematocrit (blood only) 23.5 % (37-47); Hemoglobin 7.6 g/dL (12.0-16.0); Immature Granulocytes # (auto) 0.23 K/uL (0.00-0.02); Immature Granulocytes % (auto) 1.8 %; Lymphocytes % (auto) 7.9 %; Mean Corpuscular Hemoglobin 27.7 pg (25-34); Mean Corpuscular Volume 85.8 fL (80-100); Mean Platelet Volume 9.6 fL (7.4-10.4); Monocytes # (auto) 1.09 K/uL (0.11-0.59); Monocytes % (auto) 8.6 %; Neutrophils # (auto) 10.36 K/uL (1.4-6.5); Neutrophils % (auto) 81.5 %; Nucleated RBC % (auto) 0.8 %; Platelet Count 439 K/uL (130-400); RDW Coefficient of Variation 15.2 % (11.5-14.5); RDW Standard Deviation 47.2 fL (36.4-46.3); Red Blood Count 2.74 M/uL (4.2-5.4)
[2021-06-06] MEDS ORDERED: FAMOTIDINE 20 MG in SYRINGE 3 ML IV STA (23:52)
[2021-06-07 00:09] LABS: BUN Creatinine Ratio 27.2 (10-20); Calcium 9.4 mg/dl (8.5-10.1); Creatinine Clr Calc Pharmacy 71.6 ml/min; Est GFR (African American) 70.9 ml/min; Est GFR (Non-African American) 61.2 ml/min; Potassium 4.2 mmol/L (3.5-5.1)
[2021-06-07 00:25] LABS: Mean Corpuscular Hgb Conc 32.3 g/dL (32-36)
[2021-06-07 00:26] LABS: Polychromasia 1+
[2021-06-07] MEDS: VESICARE~ORDER AWAITING ACTION SCH ×4 (00:33→23:50)
[2021-06-07] MEDS ORDERED: KCENTRA (500unit vial) 2000 units IVP IV SCH (01:30)
--- NOTE | 2021-06-07 01:41 | Surgery Consultation ---
Date of Consultation June 07, 2021 Assessment & Plan (1) Retroperitoneal hematoma: Patient is noted to be normotensive with slight tachycardia. We recommend proceeding in the following manner: Agree with holding Eliquis and administering prothrombin complex concentrates Ensure patient has adequate IV access Agree with obtaining blood consent and transfusing patient 2 units of packed red blood cells. Transfuse further blood products to maintain platelets greater than 100,000 and hemoglobin greater than 8. Follow serial laboratories with CBC being repeated every 4-6 hours It appears as though the patient's retroperitoneal hematoma occurred spontaneously in the setting of anticoagulation use. I discussed with the patient along with the medical service that retroperitoneal bleeds in this manner are typically treated nonoperatively. Oftentimes at the time of surgery the source of bleeding is not ascertained. If patient continues to have signs or symptoms of continued bleeding (hypotension, tachycardia, continued abdominal pain, enlarging size of retroperitoneal peritoneal hematoma on future imaging, etc.) she may need to be transferred to a tertiary care facility where interventional radiology with embolization can be performed. I have also discussed with the medical service that they may want to enlist the help of vascular surgery for additional recommendations. History of Present Illness Reason for Consultation: Retroperitoneal hemorrhage Attending Physician: Lucia Milton MD History of Present Illness This is a 61-year-old female who was admitted to [facility] on 05/30/2021. Patient was admitted secondary to COVID-19 pneumonia. She was also noted to have acute hyponatremia. She has been treated appropriately with intravenous dexamethasone. During her admission she developed new onset A. fib. Because of this problem the patient has been anticoagulated with Eliquis. The Eliquis was initiated on 06/02/2021 and her most recent dose was given the evening of 06/06/2021. From the standpoint of her Covid pneumonia the patient says that she is feeling overall well. She says she is not short of breath at the present time and she has minimal to no cough. Earlier on the evening of 06/06/2026 approximate 6:00 PM the patient noted a vague abdominal pain primarily located in the left upper quadrant and the left flank. This is gotten progressively worse since it began. The patient has been up out of bed to bedside commode but she denies any falls or traumatic injuries to her affected side. When she transfers from the bed to the bedside commode she does not notice any twisting, popping, or pulling motions that would have initiated this pain. She denies any fevers, shakes, chills. She denies any diarrhea. She denies any nausea or vomiting. Because of her worsening abdominal pain she was evaluated by the hospitalist service. A CT scan of the abdomen pelvis was performed utilizing IV contrast which I independently reviewed.. This study identified a left retroperitoneal hematoma which measured approximately 18 x 12 x 8 cm. There were no sites of active bleeding noted. Patient also had labs performed with her most recent CBC being the evening of 06/06/2021 at approximately 1130. This showed a white blood cell count of 12.7. Her hemoglobin and hematocrit were noted to be 7.6 and 23.5. Her hemoglobin and hematocrit values represented a drop from normal values that were recorded on 06/02/2021. Patient's platelet count was 439,000. Chemistry profile showed sodium and potassium are within the normal range. Her BUN was slightly elevated at 27 but her creatinine was noted to be normal. I discussed with the bedside nurse who is attending to the patient and he notes that there has been no recorded episodes of hypotension. There have been no witnessed falls. He also notes that the patient has only been receiving Eliquis for anticoagulation and to the best of his knowledge has not received any intravenous heparin or Lovenox subcutaneously. At the time of my interview with the patient she was resting in bed. She was noted to be hemodynamically stable and comfortable and was in no distress. Allergies Allergy/AdvReac Type Severity Reaction Status Date / Time adhesive Allergy Unknown Unknown Verified 05/30/21 00:16 Home Medications Medication Instructions Recorded Confirmed Type losartan 25 mg tablet 25 mg PO DAILY 12/20/18 05/30/21 History omeprazole magnesium 20 mg 20 mg PO DAILY 12/20/18 05/30/21 History tablet,delayed release (Prilosec OTC) aspirin 81 mg chewable tablet 81 mg PO DAILY 05/05/20 05/30/21 History solifenacin 5 mg tablet 5 mg PO DAILY 05/05/20 05/30/21 History Patient History Medical History Arthritis of knee Atrial fibrillation Cerebral arterial aneurysm GERD (gastroesophageal reflux disease) Hypertension Obesity Pigmented villonodular synovitis of right knee Surgical History History of arthroscopic knee surgery S/P coil embolization of cerebral aneurysm Family History Other Family history non-contributory Social History Smoking Status: Never smoker Hx Alcohol Use: No Hx Substance Use: No Preferred Language: Monegasque Communication Ability: Effective Fine Patcher Required: No marital status: Single Current Living Situation: Alone current occupational status: retired Feels Safe at Home: Yes Assistive Devices: Oxygen - Continuous Review of Systems Constitutional: no fever and no chills Eyes: + corrective lenses Ear, Nose, Mouth, Throat: no ear pain and no sore throat Respiratory: no cough Cardiovascular: no chest pain Gastrointestinal: + abdominal pain; no nausea and no vomiting Genitourinary: + flank pain (Left-sided) Musculoskeletal: + back pain (Left-sided flank) Integumentary: no rash Neurologic: no localized weakness Physical Exam Constitutional: well developed, well nourished and + obese; no acute distress Eyes: Wears glasses ENMT: Ears: no hearing impairment Mouth: no oropharynx abnormality Neck: trachea midline Respiratory: normal respiratory effort; no respiratory distress and no labored breathing Cardiovascular: Rate/Rhythm: + irregularly irregular Dorsalis pedis pulses are palpable bilaterally Gastrointestinal (Abdomen): Abdomen is rotund and soft. There is no distention. Bowel sounds are present. There is no rebound tenderness or guarding. Pain is noted with palpation only in the left upper quadrant and left hypogastric area. There is also pain with palpation noted in the left flank area. There are no areas of large ecchymosis. There is a small area of ecchymosis just inferior to the umbilicus. Musculoskeletal: No calf tenderness Skin: no rashes Neurologic: moves all extremities Psychiatric: A+Ox3, euthymic affect Results & Data ([facility]) Vital Signs (Past 12 Hours) Vital Signs Temp Pulse Pulse Resp BP Pulse Ox 06/07/21 01:19 116 H 06/06/21 23:26 36.6 C 88 18 117/78 95 06/06/21 19:40 36.8 C 77 20 99/68 L 95 06/06/21 16:00 36.7 C 83 18 111/68 93 06/06/21 14:26 153 H PG Care Time/CCT Total # of Minutes Spent Total Time Spent with Patient: Total time spent is greater than 50% in coordination of care (as documented) at patient's floor/unit and/or counseling patient: Coding Level of Care Code 12166 Inpt Consult Level 5 Diagnoses Retroperitoneal hematoma K66.1
[2021-06-07] MEDS ORDERED: SODIUM CHLORIDE 0.9% 250 ML IV PRN ×2 (02:29→10:31)
[2021-06-07] MEDS: oxyCODONE/ACETAMINOPHEN 5mg/325mg TAB PO PRN (05:46)
--- NOTE | 2021-06-07 07:16 | CT Scan Report ---
CT abd pelvis IV con only CLINICAL HISTORY: Increased abdominal pain, decreasing hgb COMPARISON STUDY: No previous studies for comparison. CT DOSE: 1315.24 mGy.cm TECHNIQUE: Standard CT of the Abdomen and Pelvis was performed with IV contrast. A dose lowering corrine hnique was utilized adhering to the principles of ALARA. Contrast Volume: Optiray 320, 93 ml. The patient did not receive oral contrast. FINDINGS: Lung base: There is bibasilar atelectasis, left greater than right. Abdominal cavity: There is a large retroperitoneal hematoma on the left beginning below the spleen an d extending into the pelvis. It measures approximately 17.9 x 8.7 x 10.2 cm in craniocaudad, transver se and AP diameters respectively. No definite CT evidence for active bleeding is seen at this time. Liver: There is homogeneous attenuation of the liver parenchyma. There is no evidence for enhancing m ass lesion. Spleen: There is homogeneous attenuation of the splenic parenchyma. There is no enhancing mass lesion . Pancreas: There is homogeneous attenuation of the pancreatic parenchyma. There is no evidence for mas s lesion or peripancreatic fluid collection. Gall Bladder: The gallbladder is well distended with no evidence for intraluminal calculi, wall thick ening or pericholecystic edema. Adrenal glands: The adrenal glands are normal in size and attenuation. There is no evidence for enhan cing mass lesion. Kidneys: There is homogeneous attenuation of the renal parenchyma bilaterally. There is no evidence f or renal calculus or hydronephrosis. There is no evidence for enhancing mass. Bowel: The patient is status post previous gastric bypass surgery. The bowel loops are normally place d within the abdomen and pelvis without evidence for dilatation or obstruction. There is no evidence for mass lesion. There are no inflammatory changes present. There is no evidence for free air. There is a normal appendix in the right lower quadrant. Bladder: The bladder is partially contracted with thickening of the bladder wall. The presence of cys titis cannot be excluded. No focal mass is identified. No calcifications are seen. : There is no evidence for pelvic mass or adenopathy. There is no evidence for pelvic ascites. The patient is status post hysterectomy. Vasculature: There is no evidence for aneurysmal dilatation of the abdominal aorta. Osseous structures: There is no acute osseous pathology. Degenerative changes are seen within the spi ne. IMPRESSION: 1. Large retroperitoneal hematoma on the left as described above. No evidence for active bleeding is seen at this time. 2. Partial contraction of the bladder with thickening of the bladder wall. The presence of cystitis c annot be excluded. 3. Bibasilar atelectasis, left greater than right. ACT 112: Negative or not required by law. Electronically signed by: Michael Gutierrez M.D. 06/07/2021 7:15 AM
[2021-06-07] MEDS: FAMOTIDINE 40 MG TABLET PO SCH (09:01)
[2021-06-07] MEDS: PANTOprazole 40 MG TAB PO SCH (09:01)
[2021-06-07] MEDS: dexAMETHasone 6 MG in SYRINGE 0 ML IV SCH (09:01)
[2021-06-07] MEDS: METOPROLOL TARTRATE 50 MG TAB PO SCH ×2 (09:04→20:52)
--- NOTE | 2021-06-07 09:40 | Cardiology Progress Note ---
Date of Service June 07, 2021 Assessment & Plan (1) Atrial fibrillation: (2) Hypertension: (3) Retroperitoneal hematoma: Plan: 1. Atrial fibrillation: This appears to be a new diagnosis and the heart rate has tended to be fast but with borderline blood pressures we have not tried to suppress her heart rate to a great extent and some tachycardia may be appropriate. Over the long run however we need to get her heart rate under control but I think is acceptable for now. Anticoagulation would be indicated for her atrial fibrillation, her [id number] score is 2 (1 for hypertension and 1 for female gender) however this is not an excessively high number and under the circumstances I certainly agree with holding anticoagulation. Female gender probably does not increase her risk substantially and she has treated, certainly not uncontrolled, hypertension. It may be safer to leave her off of anticoagulation for the time being although perhaps subcutaneous anticoagulation would be a compromise 1 felt safe from the standpoint of the retroperitoneal hematoma. We do not know if the atrial fibrillation is related to the COVID-19 diagnosis so she may not need long-term therapy but it may be difficult to tell if that is the case. 2. High blood pressure: She has a history of hypertension and was on losartan, here I changed to metoprolol for her atrial fibrillation and her blood pressure has been running low. With her high heart rate I am reluctant to decrease her metoprolol, nor do I think we can increase it to help control her heart rate. 3. Retroperitoneal hematoma: As noted above I agree with holding anticoagulation for now, further anticoagulation recommendations above. Admission and Anticipated Discharge Date Admission Date: May 30, 2021 Subjective Events of the last 24 hours reviewed, unfortunately she did develop a large retroperitoneal hematoma which evidently was spontaneous. Her hemoglobin dropped substantially. Her blood pressure this morning is somewhat low. Her Eliquis is now on hold. I did not interview her due to her COVID-19 diagnosis. Physical Exam Physical Exam: I did not examine her due to COVID-19 infection. Results & Data ([facility]) Vital Signs (Past 12 Hours) Vital Signs Temp Pulse Pulse Resp BP BP Pulse Ox 06/07/21 08:09 36.8 C 105 H 16 95/68 L 93 06/07/21 07:39 36.8 C 105 H 16 95/68 L 93 06/07/21 07:38 36.8 C 100 H 16 106/74 100 06/07/21 06:39 37.3 C 113 H 18 105/68 96 06/07/21 06:09 37.4 C 108 H 18 109/74 98 06/07/21 05:54 37 C 94 H 18 107/88 94 06/07/21 05:37 36.5 C 129 H 22 123/85 93 06/07/21 04:56 36.5 C 115 H 18 112/78 91 06/07/21 04:50 36.9 C 115 H 18 112/78 94 06/07/21 03:50 37.3 C 96 H 18 107/70 90 06/07/21 03:20 36.4 C L 106 H 20 115/72 92 06/07/21 03:05 37 C 110 H 18 111/73 91 06/07/21 02:49 36.4 C L 110 H 18 128/79 91 06/07/21 01:19 116 H 06/06/21 23:26 36.6 C 88 18 117/78 95 Laboratory Results CBC 06/06/21 Range/Units 23:30 WBC 12.70 H (4.8-10.8) K/uL RBC 2.74 L (4.2-5.4) M/uL Hgb 7.6 L (12.0-16.0) g/dL Hct 23.5 L (37-47) % Plt Count 439 H (130-400) K/uL Neut # (Auto) 10.36 H (1.4-6.5) K/uL Lymph # (Auto) 1.00 L (1.2-3.4) K/uL [place] # (Auto) 1.09 H (0.11-0.59) K/uL Eos # (Auto) 0.01 (0-0.5) K/uL Baso # (Auto) 0.01 (0-0.2) K/uL Comprehensive Metabolic Panel 06/06/21 Range/Units 23:30 Sodium 137 (136-145) mmol/L Potassium 4.2 (3.5-5.1) mmol/L Chloride 103 (98-107) mmol/L Carbon Dioxide 27 (21-32) mmol/L BUN 27 H (7-18) mg/dl Creatinine 1.00 (0.6-1.2) mg/dl Glucose 120 H (70-99) mg/dl Calcium 9.4 (8.5-10.1) mg/dl Intake and Output 06/06/21 06/07/21 06/07/21 22:59 06:59 14:59 Intake Total 635 / 875 277 / 277 Output Total 900 / 1525 Balance -265 / -650 277 / 277 Intake: Oral 325 / 565 Intake (Blood Product) Amt 310 / 310 277 / 277 Packed Cells, Leukoreduced 310 / 310 Unit [id number] Packed Cells, Leukoreduced 0 / 0 277 / 277 Unit [id number] Output: Urine Amount (Catheter) 900 / 1525 External 900 / 1525 Other: Other Intake Source Packed Cells, Leukoreduced End time of 0809 Unit [id number] # Unmeasured Voids 2 Weight 110.9 kg 111.9 kg Weight Measurement Method Built in [facility] Diagnostic Findings Telemetry: Atrial fibrillation throughout, heart rate averaging a little over 100 bpm. PG Care Time/CCT Total # of Minutes Spent Total Time Spent with Patient: Total time spent is greater than 50% in coordination of care (as documented) at patient's floor/unit and/or counseling patient: Coding Level of Care Code 81748 Subseq Hosp Care Lvl 2 Diagnoses Atrial fibrillation I48.19 Atrial fibrillation type: persistent (not longstanding) Hypertension I10 Hypertension type: primary hypertension Retroperitoneal hematoma K66.1 (1) Atrial fibrillation Atrial fibrillation type: persistent (not longstanding) Qualified Code(s): I48.19 - Other persistent atrial fibrillation (2) Hypertension Hypertension type: primary hypertension Qualified Code(s): I10 - Essential (primary) hypertension
--- NOTE | 2021-06-07 10:43 | Hospitalist Progress Note ---
Date of Service June 07, 2021 Assessment & Plan (1) Retroperitoneal hematoma: Plan: presented with left flank pain, diagnosed on CT a/p should be self limiting, no surgical intervention needed Hb is up to 9.2, BP is stable less pain now will transfuse if Hb < 7.5 or if hypotensive, monitor closely (2) Acute blood loss anemia: Plan: Hb dropped to 7.6 transfused 2 units and up to 9.2 continue to monitor closely (3) COVID-19: Plan: Patient presents with symptoms of Covid-19 that started approximately 8 days prior to admission and she was tested at an urgent care at an outside facility which was positive. She is fully vaccinated earlier this year, but had not yet received a Covid booster. She is down to room air today -Continue dexamethasone 6 mg IV once daily x 10 days -Tylenol as needed for fevers (4) Atrial fibrillation: Plan: [id number] of 2 -Started on Eliquis 5mb BID: now on hold with the retroperitoneal hematoma -Rate controlled with metoprolol -2 D ECHO did not show any wall motion abnormality, EF 55% -Cardiology on consult, appreciate recs (5) Acute metabolic encephalopathy: Plan: now resolved (6) Acute respiratory failure with hypoxia: Plan: As above, secondary to Covid-19 pneumonia down to room air (7) Acute hyponatremia: Plan: Resolved following IV saline (8) Hypokalemia: Plan: resolved (9) Hypertension: Plan: Hold anti hypertensive meds on account of low BP (10) GERD (gastroesophageal reflux disease): Plan: Chronic. Stable -Pepcid daily (11) Cerebral arterial aneurysm: Plan: In the anterior communicating artery, performed in 2019 at [facility] She has a history of a web coil being placed by her neurosurgery at [facility] in an anterior communicating artery aneurysm approximately 1 year ago. She reports she had a follow-up MRI since that time in 11/2020 which showed 50% reduction in the size of her aneurysm and her neurosurgeon told her that she is not at risk for rupture at this time. (12) Obesity: Plan: BMI 43.7 Was counselled on diet and exercise (13) Physical deconditioning: Plan: participating in PT will benefit from physical rehab Plan: Prophylaxis-Lovenox SQ Disposition- Discharge to Rehab when accepted Admission and Anticipated Discharge Date Admission Date: May 30, 2021 Subjective patient feeling better, far less left flank pain, eating well breathing is stable on room air Hb came up to > 9 from 7 discussed with her that these retroperitoneal bleeds tend to be self limiting, no intervention needed will remove from negative pressure isolation filled out her [place] paperwork Review of Systems Review of Systems: All systems reviewed & are unremarkable except as noted in Subjective Gastrointestinal: + abdominal pain (left sided, left flank) Physical Exam Physical Exam: General: well developed, obese female, no acute distress, comfortable Neck: supple, trachea midline, normal thyroid Lungs: clear to auscultation bilaterally, normal respiratory effort, no accessory muscle use, no distress Heart: regular S1 and S2, no murmur, peripheral pulses normal, capillary refill normal, no edema Abdomen: soft, NT, ND, + BS, no hepatomegaly, normal to percussion Extremities: normal in appearance, no cyanosis, no petechiae, strength is 5/5 bilaterally Neuro: awake, cooperative, moves all extremities, no focal motor deficits, CN II-XII intact, sensation in extremities intact, normal speech Skin: warm, dry, no rash, normal turgor Psych: Awake, alert oriented x 3, euthymic affect Results & Data Results & Data ([facility]) Vital Signs (Past 12 Hours) Vital Signs Temp Pulse Pulse Resp BP BP Pulse Ox 06/07/21 08:09 36.8 C 105 H 16 95/68 L 93 06/07/21 07:39 36.8 C 105 H 16 95/68 L 93 06/07/21 07:38 36.8 C 100 H 16 106/74 100 06/07/21 06:39 37.3 C 113 H 18 105/68 96 06/07/21 06:09 37.4 C 108 H 18 109/74 98 06/07/21 05:54 37 C 94 H 18 107/88 94 06/07/21 05:37 36.5 C 129 H 22 123/85 93 06/07/21 04:56 36.5 C 115 H 18 112/78 91 06/07/21 04:50 36.9 C 115 H 18 112/78 94 06/07/21 03:50 37.3 C 96 H 18 107/70 90 06/07/21 03:20 36.4 C L 106 H 20 115/72 92 06/07/21 03:05 37 C 110 H 18 111/73 91 06/07/21 02:49 36.4 C L 110 H 18 128/79 91 06/07/21 01:19 116 H 06/06/21 23:26 36.6 C 88 18 117/78 95 Laboratory Results Laboratory Results - last 24 hr 06/06/21 06/06/21 06/06/21 23:30 23:30 23:30 WBC 12.70 H RBC 2.74 L Hgb 7.6 L Hct 23.5 L MCV 85.8 MCH 27.7 MCHC 32.3 RDW Std Deviation 47.2 H RDW Coeff of Dorothy 15.2 H Plt Count 439 H MPV 9.6 Immature Gran % (Auto) 1.8 Neut % (Auto) 81.5 Lymph % (Auto) 7.9 [place] % (Auto) 8.6 Eos % (Auto) 0.1 Baso % (Auto) 0.1 Neut # (Auto) 10.36 H Lymph # (Auto) 1.00 L [place]odd[place] # (Auto) 1.09 H Eos # (Auto) 0.01 Baso # (Auto) 0.01 Immature Gran # (Auto) 0.23 H Absolute Nucleated RBC 0.10 H Nucleated RBC % (auto) 0.8 Polychromasia 1+ Sodium 137 Potassium 4.2 Chloride 103 Carbon Dioxide 27 Anion Gap 7.0 BUN 27 H Creatinine 1.00 Est Cr Clr Drug Dosing 71.6 Est GFR ( Amer) 70.9 Est GFR (Non-Af Amer) 61.2 BUN/Creatinine Ratio 27.2 H Glucose 120 H Calcium 9.4 C-Reactive Protein Urine Color Urine Appearance Urine pH Ur Specific [place] Urine Protein Urine Glucose (UA) Urine Ketones Urine Blood Urine Nitrite Urine Bilirubin Urine Urobilinogen Ur Leukocyte Esterase Urine WBC (Auto) Urine RBC (Auto) U Hyaline Cast (Auto) U Epithel Cells (Auto) Urine Bacteria (Auto) Blood Type O Negative Blood Type Recheck Antibody Screen NEGATIVE Crossmatch See Detail 06/07/21 06/07/21 06/07/21 10:42 10:42 10:42 WBC 13.90 H RBC 3.30 L Hgb 9.2 L Cancelled Hct 28.3 L Cancelled MCV 85.8 MCH 27.9 MCHC 32.5 RDW Std Deviation 48.0 H RDW Coeff of Dorothy 15.4 H Plt Count 421 H MPV 9.9 Immature Gran % (Auto) Neut % (Auto) Lymph % (Auto) [place] % (Auto) Eos % (Auto) Baso % (Auto) Neut # (Auto) Lymph # (Auto) [place] # (Auto) Eos # (Auto) Baso # (Auto) Immature Gran # (Auto) Absolute Nucleated RBC 0.11 H Nucleated RBC % (auto) 0.8 Polychromasia Sodium 136 Potassium 4.2 Chloride 103 Carbon Dioxide 27 Anion Gap 6.0 BUN 25 H Creatinine 0.99 Est Cr Clr Drug Dosing 72.7 Est GFR ( Amer) 71.8 Est GFR (Non-Af Amer) 61.9 BUN/Creatinine Ratio 25.2 H Glucose 147 H Calcium 9.4 C-Reactive Protein 9.32 H Urine Color Urine Appearance Urine pH Ur Specific [place] Urine Protein Urine Glucose (UA) Urine Ketones Urine Blood Urine Nitrite Urine Bilirubin Urine Urobilinogen Ur Leukocyte Esterase Urine WBC (Auto) Urine RBC (Auto) U Hyaline Cast (Auto) U Epithel Cells (Auto) Urine Bacteria (Auto) Blood Type Blood Type Recheck Antibody Screen Crossmatch 06/07/21 06/07/21 10:42 Unknown WBC RBC Hgb Hct MCV MCH MCHC RDW Std Deviation RDW Coeff of Dorothy Plt Count MPV Immature Gran % (Auto) Neut % (Auto) Lymph % (Auto) [place] % (Auto) Eos % (Auto) Baso % (Auto) Neut # (Auto) Lymph # (Auto) [place] # (Auto) Eos # (Auto) Baso # (Auto) Immature Gran # (Auto) Absolute Nucleated RBC Nucleated RBC % (auto) Polychromasia Sodium Potassium Chloride Carbon Dioxide Anion Gap BUN Creatinine Est Cr Clr Drug Dosing Est GFR ( Amer) Est GFR (Non-Af Amer) BUN/Creatinine Ratio Glucose Calcium C-Reactive Protein Urine Color Yellow Urine Appearance Cloudy A Urine pH 8.0 H Ur Specific [place] 1.009 Urine Protein Negative Urine Glucose (UA) Negative Urine Ketones Negative Urine Blood Negative Urine Nitrite Negative Urine Bilirubin Negative Urine Urobilinogen Negative Ur Leukocyte Esterase 1+ H Urine WBC (Auto) 10-30 H Urine RBC (Auto) 10-30 H U Hyaline Cast (Auto) 0 U Epithel Cells (Auto) >30 H Urine Bacteria (Auto) 2+ H Blood Type Blood Type Recheck O Negative Antibody Screen Crossmatch PG Care Time/CCT Total # of Minutes Spent Total Time Spent with Patient: Total time spent is greater than 50% in coordination of care (as documented) at patient's floor/unit and/or counseling patient: Coding Level of Care Code 02101 Subseq Hosp Care Lvl 3 Diagnoses COVID-19 U07.1 Atrial fibrillation I48.19 Atrial fibrillation type: persistent (not longstanding) Acute metabolic encephalopathy G93.41 Acute respiratory failure with hypoxia J96.01 Acute hyponatremia E87.1 Hypokalemia E87.6 Hypertension I10 Hypertension type: primary hypertension GERD (gastroesophageal reflux disease) K21.9 Cerebral arterial aneurysm I67.1 Obesity E66.9 Physical deconditioning R53.81 Retroperitoneal hematoma K66.1 Acute blood loss anemia D62 (1) Atrial fibrillation Atrial fibrillation type: persistent (not longstanding) Qualified Code(s): I48.19 - Other persistent atrial fibrillation (2) Hypertension Hypertension type: primary hypertension Qualified Code(s): I10 - Essential (primary) hypertension
[2021-06-07 11:03] LABS: Hematocrit (blood only) 28.3 % (37-47); Hemoglobin 9.2 g/dL (12.0-16.0); Mean Corpuscular Hemoglobin 27.9 pg (25-34); Mean Corpuscular Hgb Conc 32.5 g/dL (32-36); Mean Corpuscular Volume 85.8 fL (80-100); Mean Platelet Volume 9.9 fL (7.4-10.4); Nucleated RBC # (auto) 0.11 K/uL (0-0); Nucleated RBC % (auto) 0.8 %; Platelet Count 421 K/uL (130-400); RDW Coefficient of Variation 15.4 % (11.5-14.5)
[2021-06-07 11:41] LABS: BUN Creatinine Ratio 25.2 (10-20); C Reactive Protein 9.32 mg/dl (0-0.29); Calcium 9.4 mg/dl (8.5-10.1); Creatinine Clr Calc Pharmacy 72.7 ml/min; Est GFR (African American) 71.8 ml/min; Est GFR (Non-African American) 61.9 ml/min; Potassium 4.2 mmol/L (3.5-5.1)
--- NOTE | 2021-06-07 12:58 | Surgery Progress Note ---
Date of Service June 07, 2021 Assessment & Plan (1) Retroperitoneal hematoma: Plan: no acute intervention needed. if she would deteriorate hemodynamically or H/H continues to drop would recommend transfer to tertiary center for IR eval/treatment... will sign off. please call if any questions. (2) Obesity: (3) Atrial fibrillation: (4) COVID-19: Admission and Anticipated Discharge Date Admission Date: May 30, 2021 Subjective pt seen. minimal left flank discomfort. improving according to her. Physical Exam Constitutional: WD/WN, vitals as above no acute distress and not ill appearing Eyes: PERRL, conjunctivae normal, anicteric sclerae EOM intact bilaterally ENMT: external ear and nose normal, oropharynx normal Ears: no hearing impairment Neck: trachea midline, no thyromegaly Respiratory: normal respiratory effort; no respiratory distress and does not use accessory muscles Cardiovascular: Rate/Rhythm: regular rate and regular rhythm Gastrointestinal (Abdomen): soft. no palpable abnormalities. mild left mid abdominal/flank ttp. Skin: no rashes, warm and dry Psychiatric: Orientation: alert, oriented x 3 and cooperative Results & Data ([facility]) Vital Signs (Past 12 Hours) Vital Signs Temp Pulse Pulse Resp BP BP BP 06/07/21 11:04 36.6 C 85 18 97/56 L 06/07/21 10:53 101 H 06/07/21 10:00 06/07/21 09:01 135 H 121/86 06/07/21 08:09 36.8 C 105 H 16 95/68 L 06/07/21 07:39 36.8 C 105 H 16 95/68 L 06/07/21 07:38 36.8 C 100 H 16 106/74 06/07/21 06:39 37.3 C 113 H 18 105/68 06/07/21 06:09 37.4 C 108 H 18 109/74 06/07/21 05:54 37 C 94 H 18 107/88 06/07/21 05:37 36.5 C 129 H 22 123/85 06/07/21 04:56 36.5 C 115 H 18 112/78 06/07/21 04:50 36.9 C 115 H 18 112/78 06/07/21 03:50 37.3 C 96 H 18 107/70 06/07/21 03:20 36.4 C L 106 H 20 115/72 06/07/21 03:05 37 C 110 H 18 111/73 06/07/21 02:49 36.4 C L 110 H 18 128/79 06/07/21 01:19 116 H Pulse Ox 06/07/21 11:04 92 06/07/21 10:53 06/07/21 10:00 91 06/07/21 09:01 06/07/21 08:09 93 06/07/21 07:39 93 06/07/21 07:38 100 06/07/21 06:39 96 06/07/21 06:09 98 06/07/21 05:54 94 06/07/21 05:37 93 06/07/21 04:56 91 06/07/21 04:50 94 06/07/21 03:50 90 06/07/21 03:20 92 06/07/21 03:05 91 06/07/21 02:49 91 06/07/21 01:19 PG Care Time/CCT Total # of Minutes Spent Total Time Spent with Patient: Total time spent is greater than 50% in coordination of care (as documented) at patient's floor/unit and/or counseling patient: Coding Level of Care Code 69973 Subseq Hosp Care Lvl 3 Diagnoses Retroperitoneal hematoma K66.1 Obesity E66.9 Atrial fibrillation I48.19 Atrial fibrillation type: persistent (not longstanding) COVID-19 U07.1 (1) Atrial fibrillation Atrial fibrillation type: persistent (not longstanding) Qualified Code(s): I48.19 - Other persistent atrial fibrillation
[2021-06-07 13:06] LABS: Appearance Urine Cloudy (Clear); Bacteria Urine Automated 2+ (Negative); Bilirubin Urine Negative (Negative); Blood Urine Negative (Negative); Cast Urine Automated 0 /lpf (0-5); Color Urine Yellow; Epithelial Cell Urine Auto >30 /lpf (0-5); Glucose Urine UA Negative (Negative); Ketones Urine Negative (Negative); Leukocyte Esterase Urine 1+ (Negative); Nitrite Urine Negative (Negative); Protein Urine Negative (Negative); Specific Gravity Urine 1.009 (1.000-1.030); Urobilinogen Urine Negative (Negative)
[2021-06-08 07:23] LABS: Hematocrit (blood only) 26.7 % (37-47); Hemoglobin 8.7 g/dL (12.0-16.0); Mean Corpuscular Hemoglobin 27.7 pg (25-34); Mean Corpuscular Hgb Conc 32.6 g/dL (32-36); Mean Platelet Volume 9.6 fL (7.4-10.4); Nucleated RBC # (auto) 0.06 K/uL (0-0); Nucleated RBC % (auto) 0.5 %; Platelet Count 373 K/uL (130-400); RDW Coefficient of Variation 15.9 % (11.5-14.5); RDW Standard Deviation 48.6 fL (36.4-46.3); Red Blood Count 3.14 M/uL (4.2-5.4); White Blood Count 11.77 K/uL (4.8-10.8)
[2021-06-08] MEDS: VESICARE~ORDER AWAITING ACTION SCH ×3 (07:25→23:06)
[2021-06-08 07:59] LABS: BUN Creatinine Ratio 22.3 (10-20); Calcium 9.4 mg/dl (8.5-10.1); Creatinine Clr Calc Pharmacy 77.4 ml/min; Est GFR (African American) 79.5 ml/min; Est GFR (Non-African American) 68.6 ml/min; Potassium 4.1 mmol/L (3.5-5.1)
[2021-06-08] MEDS: METOPROLOL TARTRATE 50 MG TAB PO SCH ×2 (09:06→20:20)
[2021-06-08] MEDS: dexAMETHasone 6 MG in SYRINGE 0 ML IV SCH (09:06)
[2021-06-08] MEDS: PANTOprazole 40 MG TAB PO SCH (09:07)
[2021-06-08] MEDS: FAMOTIDINE 40 MG TABLET PO SCH (09:07)
[2021-06-08] MEDS ORDERED: cefTRIAXone SODIUM 1,000 MG in DEXTROSE 5% 50 ML IV SCH (13:45)
[2021-06-08] MEDS: cefTRIAXone SODIUM 2,000 MG in DEXTROSE 5% 50 ML IV SCH (14:32)
--- NOTE | 2021-06-08 14:51 | Cardiology Progress Note ---
Date of Service June 08, 2021 Assessment & Plan (1) Atrial fibrillation: (2) Hypertension: (3) Retroperitoneal hematoma: Plan: 1. Atrial fibrillation: She has now converted to sinus rhythm as of 1315 yesterday afternoon and remained in sinus rhythm. Anticoagulation would be indicated for her atrial fibrillation, her [id number] score is 2 (1 for hypertension and 1 for female gender) however this is not an excessively high number and under the circumstances I certainly agree with holding anticoagulation. Female gender probably does not increase her risk substantially and she has treated, certainly not uncontrolled, hypertension. It may be safer to leave her off of anticoagulation for the time being although perhaps subcutaneous anticoagulation would be a compromise 1 felt safe from the standpoint of the retroperitoneal hematoma. We do not know if the atrial fibrillation is related to the COVID-19 diagnosis so she may not need long-term therapy but it may be difficult to tell if that is the case. 2. High blood pressure: She has a history of hypertension and was on losartan, here I changed to metoprolol for her atrial fibrillation and her blood pressure has been running low. Her heart rate remains well controlled in sinus rhythm on beta-blockade and I would continue it. 3. Retroperitoneal hematoma: As noted above I agree with holding anticoagulation for now, further anticoagulation recommendations above. Admission and Anticipated Discharge Date Admission Date: May 30, 2021 Subjective I did not interview her due to her COVID-19 diagnosis. Physical Exam Physical Exam: I did not examine her due to COVID-19 infection. Results & Data ([facility]) Vital Signs (Past 12 Hours) Vital Signs Temp Pulse Pulse Resp BP Pulse Ox 06/08/21 12:00 36.9 C 67 18 108/87 95 06/08/21 08:34 36.8 C 101 H 18 118/73 97 06/08/21 05:25 37.1 C 77 20 118/77 88 L 06/08/21 03:51 83 Laboratory Results CBC 06/08/21 Range/Units 06:58 WBC 11.77 H (4.8-10.8) K/uL RBC 3.14 L (4.2-5.4) M/uL Hgb 8.7 L (12.0-16.0) g/dL Hct 26.7 L (37-47) % Plt Count 373 (130-400) K/uL Comprehensive Metabolic Panel 06/08/21 Range/Units 06:58 Sodium 139 (136-145) mmol/L Potassium 4.1 (3.5-5.1) mmol/L Chloride 106 (98-107) mmol/L Carbon Dioxide 28 (21-32) mmol/L BUN 20 H (7-18) mg/dl Creatinine 0.91 (0.6-1.2) mg/dl Glucose 92 (70-99) mg/dl Calcium 9.4 (8.5-10.1) mg/dl Intake and Output 06/07/21 06/08/21 06/08/21 22:59 06:59 14:59 Intake Total 480 / 480 Output Total 1 600 / 951 650 / 650 Balance -1 / -474 -600 / -474 -170 / -170 Intake: Oral 480 / 480 Output: Urine Amount (Catheter) 600 / 950 650 / 650 External 600 / 950 650 / 650 # Bowel Movements Other: # Unmeasured Voids 1 Weight 107.8 kg Weight Measurement Method Built in [facility] Diagnostic Findings Telemetry: Atrial fibrillation until 1315 yesterday and sinus rhythm since. PG Care Time/CCT Total # of Minutes Spent Total Time Spent with Patient: Total time spent is greater than 50% in coordination of care (as documented) at patient's floor/unit and/or counseling patient: Coding Level of Care Code 21146 Subseq Hosp Care Lvl 2 Diagnoses Atrial fibrillation I48.19 Atrial fibrillation type: persistent (not longstanding) Hypertension I10 Hypertension type: primary hypertension Retroperitoneal hematoma K66.1 (1) Atrial fibrillation Atrial fibrillation type: persistent (not longstanding) Qualified Code(s): I48.19 - Other persistent atrial fibrillation (2) Hypertension Hypertension type: primary hypertension Qualified Code(s): I10 - Essential (primary) hypertension
--- NOTE | 2021-06-08 14:59 | Hospitalist Progress Note ---
Date of Service June 08, 2021 Assessment & Plan (1) Retroperitoneal hematoma: Plan: presented with left flank pain, diagnosed on CT a/p should be self limiting, no surgical intervention needed Hb is stable at 8.7, BP is stable minimal pain will transfuse if Hb < 7.5 or if hypotensive, monitor closely can move to medical floor, take off precautions (2) Acute blood loss anemia: Plan: Hb stable at 8.7 transfused 2 units on 06/07 (3) UTI (urinary tract infection): Plan: urine culture growing E coli started Rocephin on 06/08 await final sensitivities (4) COVID-19: Plan: Patient presents with symptoms of Covid-19 that started approximately 8 days prior to admission and she was tested at an urgent care at an outside facility which was positive. She is fully vaccinated earlier this year, but had not yet received a Covid booster. She is down to room air for 2 days can be off precautions per Infection control, awaiting bed outside of COVID unit -Continue dexamethasone 6 mg IV once daily x 10 days -Tylenol as needed for fevers (5) Atrial fibrillation: Plan: [id number] of 2 -Started on Eliquis 5mb BID: now on hold with the retroperitoneal hematoma would hold 7-10 days -Rate controlled with metoprolol -2 D ECHO did not show any wall motion abnormality, EF 55% -Cardiology on consult, appreciate recs (6) Acute metabolic encephalopathy: Plan: now resolved (7) Acute respiratory failure with hypoxia: Plan: As above, secondary to Covid-19 pneumonia down to room air (8) Acute hyponatremia: Plan: Resolved following IV saline (9) Hypokalemia: Plan: resolved (10) Hypertension: Plan: Hold anti hypertensive meds on account of low BP (11) GERD (gastroesophageal reflux disease): Plan: Chronic. Stable -Pepcid daily (12) Cerebral arterial aneurysm: Plan: In the anterior communicating artery, performed in 2019 at [facility] She has a history of a web coil being placed by her neurosurgery at [facility] in [place] in an anterior communicating artery aneurysm approximately 1 year ago. She reports she had a follow-up MRI since that time in 11/2020 which showed 50% reduction in the size of her aneurysm and her neurosurgeon told her that she is not at risk for rupture at this time. (13) Obesity: Plan: BMI 43.7 Was counselled on diet and exercise (14) Physical deconditioning: Plan: participating in PT will benefit from physical rehab Plan: Prophylaxis-Lovenox SQ Disposition- Discharge to Rehab when accepted Admission and Anticipated Discharge Date Admission Date: May 30, 2021 Subjective patient feels great, minimal pain in left flank, vitals stable eating and drinking well, getting up to use bathroom reviewed labs, Cr is stable, Hb dropped slightly to 8.7 UA last night shows signs of UTI and urine culture with E coli, start Rocephin Review of Systems Review of Systems: All systems reviewed & are unremarkable except as noted in Subjective Physical Exam Physical Exam: General: well developed, obese female, no acute distress, comfortable Neck: supple, trachea midline, normal thyroid Lungs: clear to auscultation bilaterally, normal respiratory effort, no accessory muscle use, no distress Heart: regular S1 and S2, no murmur, peripheral pulses normal, capillary refill normal, no edema Abdomen: soft, NT, ND, + BS, no hepatomegaly, normal to percussion Extremities: normal in appearance, no cyanosis, no petechiae, strength is 5/5 bilaterally Neuro: awake, cooperative, moves all extremities, no focal motor deficits, CN II-XII intact, sensation in extremities intact, normal speech Skin: warm, dry, no rash, normal turgor Psych: Awake, alert oriented x 3, euthymic affect Results & Data Results & Data ([facility]) Vital Signs (Past 12 Hours) Vital Signs Temp Pulse Pulse Resp BP Pulse Ox 06/08/21 12:00 36.9 C 67 18 108/87 95 06/08/21 08:34 36.8 C 101 H 18 118/73 97 06/08/21 05:25 37.1 C 77 20 118/77 88 L 06/08/21 03:51 83 Laboratory Results Laboratory Results - last 24 hr 06/08/21 06/08/21 06:58 06:58 WBC 11.77 H RBC 3.14 L Hgb 8.7 L Hct 26.7 L MCV 85.0 MCH 27.7 MCHC 32.6 RDW Std Deviation 48.6 H RDW Coeff of Dorothy 15.9 H Plt Count 373 MPV 9.6 Absolute Nucleated RBC 0.06 H Nucleated RBC % (auto) 0.5 Sodium 139 Potassium 4.1 Chloride 106 Carbon Dioxide 28 Anion Gap 5.0 BUN 20 H Creatinine 0.91 Est Cr Clr Drug Dosing 77.4 Est GFR ( Amer) 79.5 Est GFR (Non-Af Amer) 68.6 BUN/Creatinine Ratio 22.3 H Glucose 92 Calcium 9.4 Medications Administered Current Inpatient Medications Acetaminophen (Acetaminophen 325 Mg Tab) 650 mg PO Q4H PRN PRN Reason: pain/fever Stop: 06/29/21 09:25 Last Admin: 06/04/21 09:10 Dose: 650 mg Documented by: Apixaban (Apixaban 5 Mg Tablet) 5 mg PO BID [facility] Stop: 07/02/21 20:59 Last Admin: 06/06/21 20:09 Dose: 5 mg Documented by: Benzonatate (Benzonatate 100 Mg Capsule) 100 mg PO TID PRN PRN Reason: Cough Stop: 07/02/21 01:04 Last Admin: 06/04/21 09:10 Dose: 100 mg Documented by: Famotidine (Famotidine 40 Mg Tablet) 40 mg PO QAM [facility] Stop: 06/29/21 09:49 Last Admin: 06/08/21 09:07 Dose: 40 mg Documented by: Dexamethasone 6 mg/ Syringe 1.5 mls @ 1 mls/min IV Q24H [facility] Stop: 06/30/21 08:59 Last Admin: 06/08/21 09:06 Dose: 1 mls/min Documented by: Sodium Chloride (Nss) 250 mls @ 15 mls/hr IV .[id number] PRN PRN Reason: For Transfusion Stop: 07/07/21 02:28 Ceftriaxone Sodium 2,000 mg/ (Dextrose) 70 mls @ 140 mls/hr IV DAILY [facility]; Protocol Stop: 06/13/21 13:44 Last Admin: 06/08/21 14:32 Dose: 140 mls/hr Documented by: Melatonin (Melatonin 3 Mg Tab) 6 mg PO HS PRN PRN Reason: Sleep Stop: 07/01/21 02:13 Last Admin: 06/01/21 21:11 Dose: 6 mg Documented by: Menthol (Cough Drop (Sugar Free) Janeen 24 Janeen/1 Box) 1 janeen BUCCAL Q2H PRN PRN Reason: Sore Throat Stop: 07/02/21 01:05 Last Admin: 12/17/21 01:11 Dose: 1 janeen Documented by: Metoprolol Tartrate (Metoprolol Tartrate 50 Mg Tab) 50 mg PO BID [facility] Stop: 07/02/21 20:59 Last Admin: 06/08/21 09:06 Dose: 50 mg Documented by: Miscellaneous (Vesicare~Order Awaiting Action) 1 ea N/A QS [facility] Stop: 07/01/21 01:29 Last Admin: 06/08/21 07:25 Dose: Not Given Documented by: Ondansetron HCl (Ondansetron Inj 2 Mg/Ml 2 Ml Vial) 4 mg IV Q6H PRN PRN Reason: Nausea Stop: 06/29/21 09:25 Oxycodone/Acetaminophen (Oxycodone/Acetaminophen 5mg/325mg Tab) 1 tab PO Q4H PRN PRN Reason: Pain Stop: 06/17/21 10:16 Last Admin: 06/07/21 05:46 Dose: 1 tab Documented by: Pantoprazole Sodium (Pantoprazole 40 Mg Tab) 40 mg PO DAILY [facility] Stop: 07/01/21 01:59 Last Admin: 06/08/21 09:07 Dose: 40 mg Documented by: Sodium Chloride (Sodium Chloride 0.65% Na Soln 45 Ml (Kimble)) 2 sprays NA Q4H PRN PRN Reason: Congestion Stop: 07/05/21 14:51 Last Admin: 06/05/21 15:12 Dose: 2 sprays Documented by: PG Care Time/CCT Total # of Minutes Spent Total Time Spent with Patient: Total time spent is greater than 50% in coordination of care (as documented) at patient's floor/unit and/or counseling patient: Coding Level of Care Code 36498 Subseq Hosp Care Lvl 3 Diagnoses Retroperitoneal hematoma K66.1 Acute blood loss anemia D62 COVID-19 U07.1 Atrial fibrillation I48.19 Atrial fibrillation type: persistent (not longstanding) Acute metabolic encephalopathy G93.41 Acute respiratory failure with hypoxia J96.01 Acute hyponatremia E87.1 Hypokalemia E87.6 Hypertension I10 Hypertension type: primary hypertension GERD (gastroesophageal reflux disease) K21.9 Cerebral arterial aneurysm I67.1 Obesity E66.9 Physical deconditioning R53.81 UTI (urinary tract infection) N39.0 (1) Atrial fibrillation Atrial fibrillation type: persistent (not longstanding) Qualified Code(s): I48.19 - Other persistent atrial fibrillation (2) Hypertension Hypertension type: primary hypertension Qualified Code(s): I10 - Essential (primary) hypertension
[2021-06-09] MEDS: VESICARE~ORDER AWAITING ACTION SCH ×3 (07:59→23:18)
[2021-06-09] MEDS: cefTRIAXone SODIUM 2,000 MG in DEXTROSE 5% 50 ML IV SCH (08:59)
[2021-06-09] MEDS: FAMOTIDINE 40 MG TABLET PO SCH (09:00)
[2021-06-09] MEDS: PANTOprazole 40 MG TAB PO SCH (09:00)
[2021-06-09] MEDS: METOPROLOL TARTRATE 50 MG TAB PO SCH ×2 (09:00→20:30)
[2021-06-09] MEDS: dexAMETHasone 6 MG in SYRINGE 0 ML IV SCH (09:30)
[2021-06-09 09:54] LABS: Basophils # (auto) 0.01 K/uL (0-0.2); Basophils % (auto) 0.1 %; Eosinophils # (auto) 0.02 K/uL (0-0.5); Eosinophils % (auto) 0.2 %; Hematocrit (blood only) 29.1 % (37-47); Hemoglobin 9.3 g/dL (12.0-16.0); Immature Granulocytes # (auto) 0.13 K/uL (0.00-0.02); Immature Granulocytes % (auto) 1.2 %; Lymphocytes # (auto) 1.42 K/uL (1.2-3.4); Lymphocytes % (auto) 12.7 %; Mean Corpuscular Hemoglobin 27.8 pg (25-34); Mean Corpuscular Volume 86.9 fL (80-100); Monocytes # (auto) 0.44 K/uL (0.11-0.59); Monocytes % (auto) 3.9 %; Neutrophils # (auto) 9.17 K/uL (1.4-6.5); Neutrophils % (auto) 81.9 %; Nucleated RBC # (auto) 0.06 K/uL (0-0); Nucleated RBC % (auto) 0.6 %; Platelet Count 382 K/uL (130-400); RDW Coefficient of Variation 16.2 % (11.5-14.5); RDW Standard Deviation 50.6 fL (36.4-46.3); Red Blood Count 3.35 M/uL (4.2-5.4); White Blood Count 11.19 K/uL (4.8-10.8)
[2021-06-09 10:13] LABS: Albumin Level 2.2 gm/dl (3.4-5.0); BUN Creatinine Ratio 29.9 (10-20); Calcium 9.8 mg/dl (8.5-10.1); Creatinine Clr Calc Pharmacy 64.4 ml/min; Est GFR (African American) 63.9 ml/min; Est GFR (Non-African American) 55.1 ml/min; Potassium 3.6 mmol/L (3.5-5.1)
[2021-06-09 10:16] LABS: Albumin Globulin Ratio 0.5 (0.9-2); Bilirubin,Total 0.6 mg/dl (0.2-1); Globulin 4.4 gm/dl (2.5-4.0); Total Protein 6.6 gm/dl (6.4-8.2)
[2021-06-09] MEDS ORDERED: POTASSIUM CHLORIDE CRTAB 20 MEQ TABCR PO STA (11:55)
--- NOTE | 2021-06-09 11:56 | Hospitalist Progress Note ---
Date of Service June 09, 2021 Assessment & Plan (1) Retroperitoneal hematoma: Plan: presented with left flank pain, diagnosed on CT a/p she did have somewhat of a controlled fall in the first 2 days she was here and was lowered down to floor, does have some bruising on left knee from that-she questions if maybe this caused RP bleed-i suppose possible but does not seem like was a high impact fall should be self limiting, no surgical intervention needed, appreciate SUrgery consult Hb is now improved up to 9.3, BP is stable minimal pain will transfuse if Hb < 7.5 or if hypotensive, monitor closely (2) Acute blood loss anemia: Plan: Hgb improved as above to 9.3 2/ RP bleed transfused 2 units on 06/07 ok to restart ASA 81mg daily tomorrow for her cerebral aneurysm coil (3) UTI (urinary tract infection): Plan: urine culture growing E coli, pansensitive started Rocephin on 06/08 -convert to po abx with keflex (4) COVID-19: Plan: Patient presents with symptoms of Covid-19 that started approximately 8 days prior to admission and she was tested at an urgent care at an outside facility which was positive. She is fully vaccinated earlier this year, but had not yet received a Covid booster. She is down to room air for several days can be off precautions per Infection control, awaiting bed outside of COVID unit -Continue dexamethasone 6 mg IV once daily x 10 days-today is last day -Tylenol as needed for fevers (5) Atrial fibrillation: Plan: [id number] of 2 -Started on Eliquis 5mb BID: now on hold with the retroperitoneal hematoma would hold 7-10 days, restart as outpt with Cardiology -Rate controlled with metoprolol -2 D ECHO did not show any wall motion abnormality, EF 55% -Cardiology on consult, appreciate recs (6) Acute metabolic encephalopathy: Plan: now resolved (7) Acute respiratory failure with hypoxia: Plan: As above, secondary to Covid-19 pneumonia down to room air (8) Acute hyponatremia: Plan: Resolved following IV saline (9) Hypokalemia: Plan: resolved but keeo K+> 4.0 due to Afib give KCl 40 meq po x 1 today (10) Hypertension: Plan: Hold home losartan but is now on metoprolol for Afib (11) GERD (gastroesophageal reflux disease): Plan: Chronic. 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 She reports she had a follow-up MRI since that time in 11/2020 which showed 50% reduction in the size of her aneurysm and her neurosurgeon told her that she is not at risk for rupture at this time. I discussed her care with her Neurosurgeon, Dr. Haskins, on the phone last week after admission and he said from his standpoint, it is fine to be on anticoagulation for her Afib -restart home ASA 81mg daily tomorrow as Rxd by NS (13) Obesity: Plan: BMI 43.7 Was counselled on diet and exercise (14) Physical deconditioning: Plan: participating in PT will benefit from physical rehab Plan: Prophylaxis-SCDs, holding ELiquis due to RP bleed Disposition- Discharge to Rehab when accepted Admission and Anticipated Discharge Date Admission Date: May 30, 2021 Subjective No SOB, remains off O2, still weak.No CP. Tele with NSR Really wants to go home but PT recommended SNF. Still has some occasional pain in left flank after moving/twisting this AM to the right but it is better now. Review of Systems Review of Systems: All systems reviewed & are unremarkable except as noted in HPI & below Physical Exam Constitutional: WD/WN, vitals as above + morbidly obese Eyes: + anicteric sclerae Neck: trachea midline, no thyromegaly Respiratory: normal respiratory effort; no cough and not tachypneic Auscultation: lungs clear to auscultation bilaterally Cardiovascular: Rate/Rhythm: regular rate and regular rhythm Heart Sounds: no murmur Extremities: no edema Chest (Breasts): Chest: normal inspection of chest Gastrointestinal (Abdomen): normal bowel sounds, soft, nontender, no hepatosplenomegaly Musculoskeletal: Extremities: extremities normal to inspection; no cyanosis and no clubbing Skin: no rashes, warm and dry Neurologic: moves all extremities and awake; no focal motor deficits Psychiatric: A+Ox3, euthymic affect Lymphatic: no lymphedema Results & Data Results & Data ([facility]) Vital Signs (Past 12 Hours) Vital Signs Temp Pulse Pulse Resp BP BP Pulse Ox 06/09/21 11:50 36.4 C L 61 18 112/73 92 06/09/21 11:29 61 06/09/21 07:40 36.9 C 67 18 137/96 93 06/09/21 03:50 36.8 C 79 22 157/97 H 96 06/09/21 00:07 37.2 C 71 20 104/74 91 Laboratory Results 06/09/21 09:22 06/09/21 09:22 PG Care Time/CCT Total # of Minutes Spent Total Time Spent with Patient: Total time spent is greater than 50% in coordination of care (as documented) at patient's floor/unit and/or counseling patient: Coding Level of Care Code 04655 Subseq Hosp Care Lvl 3 Diagnoses Retroperitoneal hematoma K66.1 Acute blood loss anemia D62 UTI (urinary tract infection) N39.0 COVID-19 U07.1 Atrial fibrillation I48.19 Atrial fibrillation type: persistent (not longstanding) Acute metabolic encephalopathy G93.41 Acute respiratory failure with hypoxia J96.01 Acute hyponatremia E87.1 Hypokalemia E87.6 Hypertension I10 Hypertension type: primary hypertension GERD (gastroesophageal reflux disease) K21.9 Cerebral arterial aneurysm I67.1 Obesity E66.9 Physical deconditioning R53.81 (1) Atrial fibrillation Atrial fibrillation type: persistent (not longstanding) Qualified Code(s): I48.19 - Other persistent atrial fibrillation (2) Hypertension Hypertension type: primary hypertension Qualified Code(s): I10 - Essential (primary) hypertension
[2021-06-09] MEDS: cephALEXin 500 MG CAP PO SCH ×3 (14:39→20:30)
[2021-06-10] MEDS: VESICARE~ORDER AWAITING ACTION SCH (07:23)
[2021-06-10 08:32] LABS: Basophils # (auto) 0.01 K/uL (0-0.2); Basophils % (auto) 0.1 %; Hematocrit (blood only) 28.1 % (37-47); Immature Granulocytes % (auto) 0.9 %; Lymphocytes # (auto) 1.57 K/uL (1.2-3.4); Lymphocytes % (auto) 14.2 %; Mean Corpuscular Volume 87.3 fL (80-100); Mean Platelet Volume 9.7 fL (7.4-10.4); Monocytes # (auto) 0.55 K/uL (0.11-0.59); Neutrophils # (auto) 8.82 K/uL (1.4-6.5); Neutrophils % (auto) 79.8 %; Nucleated RBC # (auto) 0.08 K/uL (0-0); Nucleated RBC % (auto) 0.7 %; Platelet Count 362 K/uL (130-400); RDW Coefficient of Variation 16.3 % (11.5-14.5); RDW Standard Deviation 51.2 fL (36.4-46.3); Red Blood Count 3.22 M/uL (4.2-5.4); White Blood Count 11.05 K/uL (4.8-10.8)
[2021-06-10 08:55] LABS: Albumin Level 2.5 gm/dl (3.4-5.0); BUN Creatinine Ratio 31.8 (10-20); Creatinine Clr Calc Pharmacy 75.1 ml/min; Est GFR (African American) 76.4 ml/min; Est GFR (Non-African American) 65.9 ml/min
[2021-06-10 08:57] LABS: Albumin Globulin Ratio 0.6 (0.9-2); Bilirubin,Total 0.7 mg/dl (0.2-1); Total Protein 6.5 gm/dl (6.4-8.2)
[2021-06-10] MEDS ORDERED: ASPIRIN 81 MG ECTAB PO SCH (09:00)
[2021-06-10] MEDS: PANTOprazole 40 MG TAB PO SCH (09:56)
[2021-06-10] MEDS: cephALEXin 500 MG CAP PO SCH (09:56)
[2021-06-10] MEDS: METOPROLOL TARTRATE 50 MG TAB PO SCH (09:56)
[2021-06-10] MEDS: FAMOTIDINE 40 MG TABLET PO SCH (09:56)
[2021-06-10] MEDS ORDERED: METOPROLOL TARTRATE 50 MG TAB PO ONE (12:58)
--- NOTE | 2021-06-10 13:03 | Discharge Summary ---
Date of Service June 10, 2021 Admission HPI Per Admitting Provider Ashli Galeas is a 61yo C female with history of HTN, GERD presenting with progressive confusion over the last week. Patient was diagnosed with Covid-19 1 week ago. She reports feeling more confused over the last several days. She has been having some vomiting and diarrhea as well as poor oral intake. She has a dull headache. Denies loss of consciousness, dizziness, falls or seizure. Denies chest pain, SOB. Saturations acceptable in the ER. Patient presently on 2L NC. She is vaccinated. Labs reveal Na of 128 ER Course: NSS x 1L followed by 125mL/hr Principal Diagnosis Acute metabolic encephalopathy, COVID-19 PNA, Acute respiratory failure with hypoxia, Hyponatremia, Atrial fibrillation, Acute blood loss anemia, retroperitoneal hematoma Discharge Exam Constitutional WD/WN, vitals as above + morbidly obese Eyes + anicteric sclerae Neck trachea midline, no thyromegaly Respiratory normal respiratory effort; no cough and not tachypneic Auscultation: lungs clear to auscultation bilaterally Cardiovascular Rate/Rhythm: regular rate and regular rhythm Heart Sounds: no murmur Vessels: dorsalis pedis pulses present Extremities: no edema Chest (Breasts) Chest: normal inspection of chest Gastrointestinal (Abdomen) normal bowel sounds, soft, nontender, no hepatosplenomegaly Musculoskeletal Extremities: extremities normal to inspection; no cyanosis and no clubbing Skin no rashes, warm and dry Neurologic moves all extremities and awake; no focal motor deficits Psychiatric A+Ox3, euthymic affect Lymphatic no lymphedema Discharge Data Allergies Allergy/AdvReac Type Severity Reaction Status Date / Time adhesive Allergy Unknown Unknown Verified 05/30/21 00:16 Consultations 05/30/21 02:31 ED Decision to Admit Stat 05/31/21 14:09 Consult Cardiology Routine 06/07/21 01:15 Consult General Surgery Stat Ordered Studies 05/30/21 00:17 CT head/brain wo con Urgent 06/06/21 22:06 CT abd pelvis IV con only Urgent Hospital Course (1) COVID-19: Patient presents with symptoms of Covid-19 that started approximately 8 days prior to admission and she was tested at an urgent care at an outside facility which was positive. She is fully vaccinated earlier this year, but had not yet received a Covid booster. She is down to room air for many days and not requiring O2 with ambulation on day of discharge-POx 95% can be off precautions per Infection control, awaiting bed outside of COVID unit -received 10 days of dexamethasone 6 mg IV once daily (2) Retroperitoneal hematoma: presented with left flank pain, diagnosed on CT a/p she did have somewhat of a controlled fall in the first 2 days she was here and was lowered down to floor, does have some bruising on left knee from that-she questions if maybe this caused RP bleed-i suppose possible but does not seem like was a high impact fall should be self limiting, no surgical intervention needed, appreciate SUrgery consult Hb is now improved up to 9.1 and stable from previous, BP is stable f/u CBC in 1 week with PCP (3) Acute blood loss anemia: Hgb improved as above to 9.1 2/ RP bleed transfused 2 units on 06/07 ok to restart ASA 81mg daily for her cerebral aneurysm coil (4) UTI (urinary tract infection): urine culture growing E coli, pansensitive started Rocephin on 06/08 -convert to po abx with keflex to finish 3 day course (5) Atrial fibrillation: [id number] of 2 -Started on Eliquis 5mb BID: now on hold with the retroperitoneal hematoma would hold 7-10 days, restart as outpt with Cardiology -Rate controlled with metoprolol -2 D ECHO did not show any wall motion abnormality, EF 55% -Cardiology on consult, appreciate recs (6) Acute metabolic encephalopathy: now resolved, was secondary to COVID-19, hyponatremia, hypoxia (7) Acute respiratory failure with hypoxia: As above, secondary to Covid-19 pneumonia down to room air (8) Acute hyponatremia: Resolved following IV saline (9) Hypokalemia: resolved with replacement (10) Hypertension: dc home losartan but is now on metoprolol for Afib and BPs can't tolerate both meds (11) GERD (gastroesophageal reflux disease): Chronic. Stable continue PPI (12) Cerebral arterial aneurysm: In the anterior communicating artery, performed in 2019 at [facility] in [place] She has a history of a web coil being placed by her neurosurgery at [facility] in [place] in an anterior communicating artery aneurysm approximately 1 year ago. She reports she had a follow-up MRI since that time in 11/2020 which showed 50% reduction in the size of her aneurysm and her neurosurgeon told her that she is not at risk for rupture at this time. I discussed her care with her Neurosurgeon, Dr. Haskins, on the phone last week after admission and he said from his standpoint, it is fine to be on anticoagulation for her Afib -restarted home ASA 81mg daily as Rxd by NS (13) Obesity: BMI 43.7 Was counselled on diet and exercise (14) Physical deconditioning: participating in PT and improved, able to go home with home health Prophylaxis-SCDs, holding ELiquis due to RP bleed Disposition- Discharge to [facility] with home health today Total Time Total Time Spent Total Time Spent (In Minutes): 40 min Discharge Plan Discharge Items Patient Disposition: Home - Home Health Services Reason For Visit: HYPONATREMIA Discharge Diagnosis: COVID-19 Pneumonia, Acute respiratory failure with hypoxia, retroperitoneal hematoma, acute blood loss anemia, hyponatremia, Atrial fibrillation Condition on Discharge: Good Activity: As commented below Lifting: Gradually increase as tolerated Bathing: No limitations Exercise/Sports: Gradually increase as tolerated Non-emergency contact: Primary Care Provider and Cardiology Physician Assistant Call non-emergency contact if: you have any medication questions, your symptoms worsen and you have a fever Follow-up/Referrals: Shade Contreras MD [Physician] - (Follow up within 2 weeks for your atrial fibrillation ) Rose White CRNP [Primary Care Provider] - (Follow up within 1 week.) Diet: Heart Healthy Addtl Attending Provider Instructions: You were admitted with COVID-19 Pneumonia and treated for this. Your oxygen levels improved and you did not need oxygen at the time of discharge. You also had a heart arrhythmia called atrial fibrillation which is an irregular rapid heartbeat that can increase your risk of stroke. You were placed on a blood thinner called Eliquis which was subsequently STOPPED after you had ble eding in your abdomen. The bleeding stopped but for now you should remain off of the Eliquis until you follow up with the Cardiology Physician Assistant in 2 weeks. Please have your PCP check your CBC (Complete Blood Count) in 1 week to ensure it is remaining stable. You were also treated for a UTI with antibiotics for a few days but have now completed that treatment x 3 days. If you develop worsening chest pain, shortness of breath, leg pain or swelling, lightheadedness, or any other acute concern, please return to the hospital right away. Pending Studies at Discharge: No Stand-Alone Forms: My [facility] Medications and DC Order Prescriptions: New metoprolol tartrate 50 mg Tablet 50 mg PO BID Qty: 60 RF: 0 Continued aspirin 81 mg tablet,chewable 81 mg PO DAILY RF: 0 solifenacin 5 mg tablet 5 mg PO DAILY RF: 0 omeprazole magnesium [Prilosec OTC] 20 mg Tablet,Delayed Release (Dr/Ec) 20 mg PO DAILY RF: 0 Discontinued losartan 25 mg Tablet 25 mg PO DAILY RF: 0 Discharge Orders: Discharge Order (Routine); Ordered 06/10/21 Ordered By: Kenyetta Aguilar/Other Patient Handouts: 5 Steps for Eating Healthier Admission Data Admit Date/Time: 05/30/21 03:01 Attending Provider: Kenyetta Perry Admit Provider: Kusum Martino Primary Care Provider: Rose White Other Providers: Chantelle Velez at [place] ; Johnny Mascorro ; Kusum Martino ; Shade Contreras ; [facility] Coding Level of Care Code D/C DAY MANAGEMENT >30 MINS Diagnoses Retroperitoneal hematoma K66.1 Acute blood loss anemia D62 UTI (urinary tract infection) N39.0 COVID-19 U07.1 Atrial fibrillation I48.19 Atrial fibrillation type: persistent (not longstanding) Acute metabolic encephalopathy G93.41 Acute respiratory failure with hypoxia J96.01 Acute hyponatremia E87.1 Hypokalemia E87.6 Hypertension I10 Hypertension type: primary hypertension GERD (gastroesophageal reflux disease) K21.9 Cerebral arterial aneurysm I67.1 Obesity E66.9 Physical deconditioning R53.81
[2021-06-10] MEDS ORDERED: METOPROLOL TARTRATE 50 MG TAB PO SCH (13:15)
== END 2021-06-10 15:00 | disposition home health service (06) | DRG 177 ==
LOC: ED 23:20 → SUATTDRO 05-30 03:01 → EDINP 05-30 03:01 → 3W 05-30 21:21 → 2W 06-01 01:14 → 2S 06-07 02:24